=== PATIENT | female | born 1950 | race Caucasian/White ===

== ENCOUNTER 2025-05-10 20:35 | Inpatient (IN) | payer MEDICARE, BC, SELFPAY ==
[2025-05-10 18:26] VITALS: BP 136/119; BMI 35.6
[2025-05-10 18:39] VITALS: BP 75/55
[2025-05-10 18:47] LABS: Hematocrit 42.3 % (37.0-47.0); Hemoglobin 13.1 g/dL (12.0-16.0); Mean Corp Hgb Conc. 31.0 g/dL (33.0-37.0); Mean Corpuscular Volume 82.9 fL (81.0-99.0); Nucleated Red Blood Cells % 0 %; Platelet Count 342 10^3/uL (130-400); Red Cell Dist. Width 14.6 % (11.5-14.5)
[2025-05-10 18:54] LABS: INR 1.01; PT 13.8 Sec (11.4-14.6)
--- NOTE | 2025-05-10 18:58 | ED.GENMED ---
History of Present Illness
General
Chief Complaint: Chest Pain
Source: patient and ambulance crew
History of Present Illness
History of Present Illness:
74-year-old female presents to the emergency room complaining of chest pain. Patient began having chest pain suddenly while eating Thanksgiving dinner. Patient states the pain is severe. Medics were called. Prehospital EKG showed inferior wall
ST elevation consistent with an NJ. A prehospital STEMI alert was called. On arrival to the emergency room the patient began vomiting. She is hypotensive. She answers questions with appropriate but very short answers. Patient was actually
scheduled to have a cardiac catheterization performed tomorrow at [facility]. She has a history of coronary artery disease and has an LAD stent. She has a history of A-fib and is prescribed Eliquis but has not taken it for 2 days in preparation for
her catheterization tomorrow. When asked if the patient is on Plavix or Brilinta as she stated she did not know but medics brought her medication list and neither of these medications is on her medication list. The cardiac catheterization was
scheduled to be performed because the patient has been having significant shortness of breath. No further details were provided given her severe chest pain
Phy Exam
Physical Exam
Physical Exam:
General: Awake, Alert, Oriented to at least person and place. Appears to be in acute distress from chest pain. Pale, diaphoretic
Vitals: Bradycardic, hypotensive
Head: Atraumatic
Eyes: Pupils equal, EOMI
Throat: Airway intact, no exudates
Neck: Trachea midline
Lungs: Decreased breath sounds bilateral
Heart: Bradycardic, regular rate, no murmurs
Abd: Soft, Nontender, No pulsatile mass
Neuro: Grossly nonfocal
Skin: Cool, clammy
Extremities: pulses equal b/l, no edema
Scores
Heart Score for Chest Pain Patients
STEMI patient?: Yes
Course
Orders/Labs/Results
Orders:
Orders
05/10/25 18:29
Ondansetron Injectable [Zofran] 4 mg .ROUTE .STK-MED ONE
05/10/25 18:34
Electrocardiogram (*1) Urgent
Reason for Study: Chest Pain
EKG- Treatment ONCE
IV Insert/Care/Rem.- Treatment PRN
05/10/25 18:35
Complete Blood Count/With Diff Urgent
Comprehensive Metabolic Panel Urgent
Prothrombin Time Urgent
Troponin I Urgent
05/10/25 18:38
Fentanyl Citrate/Pf [Sublimaze] See Dose Instructions .ROUTE .STK-MED ONE
05/10/25 18:45
DOPamine 400 MG/D5W 250 ML [DOPamine] 400 mg in 250 ml .ROUTE .STK-MED
05/10/25 18:50
Heparin 1000 Units/500 ml [Heparin] 1,000 units in 500 ml .ROUTE .STK-MED
Heparin Sodium,Porcine/Ns/Pf [Heparin 2000 Units/1000 ml] 2,000 unit in 1,000 ml .ROUTE .STK-MED
Lidocaine HCl/Pf [Xylocaine-Mpf 1% Vial] 100 mg .ROUTE .STK-MED ONE
Nitroglycerin [Tridil] 1,500 mcg .ROUTE .STK-MED ONE
Verapamil Injectable [Isoptin/Verapamil Injection] 5 mg .ROUTE .STK-MED ONE
05/10/25 18:52
Fentanyl Citrate/Pf [Sublimaze] 100 mcg .ROUTE .STK-MED ONE
Heparin 10,000 units .ROUTE .STK-MED ONE
Midazolam HCl [Versed] See Dose Instructions .ROUTE .STK-MED ONE
05/10/25 18:54
NORepinephrine 4 MG/250 ML [Levophed] 0 mg in 0 ml .ROUTE .STK-MED
05/10/25 19:11
Heparin 5,000 units .ROUTE .STK-MED ONE
Ticagrelor [Brilinta] 180 mg .ROUTE .STK-MED ONE
05/10/25 19:27
Lactic Acid Stat
Comment: STAT
05/10/25 19:28
Eptifibatide [Integrilin] 20 ml .ROUTE .STK-MED
05/10/25 19:32
EPTIFIBATIDE 75 mg/100 mL [Integrilin] 75,000 mcg in 100 ml .ROUTE .STK-MED
05/10/25 20:25
Furosemide [Lasix] 80 mg .ROUTE .STK-MED ONE
05/10/25 20:29
Admit Patient As Directed
Co-Sign Provider:
Level of Care: Inpatient admission
Assign to:: CVICU
Physician / Group: Rogelio/FLORIN
Diagnosis: Inferior STEMI, cardiogenic shock.
Patient Condition: Critical
Reason for Hospitalization: Inferior STEMI, cardiogenic shock.
Expected length of stay greater than two midnights?: Yes
ELOS- Estimated Length of Stay in days: 5
I certify the patient meets the requirements for IP care: Yes
Reason for Overnight Stay: Standard of Care
Electrocardiogram (*1) Urgent
Reason for Study: Other
Other Reason for Exam: s/p intervention
Code Status As Directed
Resuscitation Status: Full Code
CARDIAC REHAB CONSULT Routine
Co-Sign Provider:
Cardiac Rehab & Exercise Evaluation Referral
Type of Cardiac Rehab Referral: Outpatient
Diagnosis: STEMI
Date of Diagnosis/Surgery: 05/10/2025
Referring Provider: Juan Mercado
[facility] Intensive Cardiac Rehab Exercise Prescription
The above named person is capable of participating in an intensive cardiac rehab exercise therapy program
under the guidance of the [facility] cardiac rehab staff, outpatient registered dieticians and
supervision of a physician.
ICR Program Objectives:
Provide supervised exercise, cooking classes, nutritional counseling and healthy mind-set education to
improve the function/symptom free work capacity to an optimal level as well as control risk factors to
prevent the progression of heart disease. During the supervised exercise therapy session some or all of
the following may be included in the cardiac rehab session: ECG telemetry, BP, heart rate, rate of
perceived exertion, symptoms/tolerance, cholesterol testing and education. Exercise modalities may
include: treadmill, upright or recumbent bike, spin bike, rowing machine, elliptical, recumbent
elliptical, arm-bike machine, recumbent stepper and free weights.
Intensity:
All CR staff will use ACSM guidelines: Most patients will exercise in the following range: Heart Rate
[place] range of 40% to 80% & Oxygen Uptake reserve range 40-80% (VO2R). Peak heart rate and VO2 are
derived from the cardiac rehab submaximal graded exercise test at RPE of 13/14 out of 20. Initial
intensity range: RPE 11 to 14/20 and may expand to 11 to 16/20.
Duration & Frequency:
If appropriate the patient will be progressed up to 40 minutes of exercise therapy. Patients will be
instructed to come three times a week in cardiac rehab and at a home/other gym to achieve optimal
physical activity/exercies i.e. 4000-10,000 steps per day.
Education:
The patient will receive one-on-one education during their orientation, initial exercise evaluation, ITP
reassessments and discharge session. Each exercise session will also include an education class (30-40
minutes).
Acetaminophen [Tylenol] 650 mg PO Q4HPRN PRN
Fentanyl Citrate/Pf [Sublimaze] 25 mcg IV [id number] PRN
Midazolam HCl [Versed] 1 mg IV Q5MPRN PRN
Morphine Sulfate 2 mg IV Q1HPRN PRN
Nitroglycerin Sublingual [Nitrostat (Sublingual)] 0.4 mg SL [id number] PRN
Oxycodone/Acetaminophen [Percocet 5/325] 1 tablet PO Q4HPRN PRN
Activity As Directed
Activity Level: Bedrest
Comment: refer to hemostasis device used for bedrest duration, then ambulate ad raquel
Environmental Department Manager Procedure As Directed
Cardiac Cath Procedure: percutaneous coronary intervention
Head of Bed-Restrictions As Directed
Comment: may elevate head of bed 30 degrees
Intake/ Output As Directed
Frequency: Per unit guidelines
Notify MD As Directed
Notify physician if: immediately for chest pain or bleeding from access site(s)
Pressure Bag and Transducer As Directed
Site Checks As Directed
Check access site for bleeding/hematoma: Yes
Comment: on arrival, Q15min x4, Q30min x2, Q1 hr x2, Q2 hr x2, Q4 hr or per
protocol
Vascular Checks As Directed
Location: distal to access site - pulse check
Frequency: Other
Comment: on arrival, Q15min x4, Q30min x2, Q1 hr x2, Q2 hr x2, Q4 hr or per protocol
Venous Foot Pumps As Directed
Location: Bilateral feet
Vital Signs As Directed
Frequency: Other
Additional Instructions:: on arrival, Q15min x4, Q30min x2, Q1 hr x2, Q2 hr x2, then Q4 hr or per unit
protocol
PRN Pain Medication Management As Directed
May give lesser potent ordered pain med per pt: Yes
preference::
Protocol:: Medication orders for pain may be administered in a
manner that supports deferring to patient preference
when the pt is:
- Requesting an ordered lesser potent pain medication.
Least to most potent pain medications are defined
as: acetaminophen < NSAID < tramadol < opioids
(morphine, oxycodone, hydromorphone).
- Requesting a lesser dose of the same medication IF
ORDERED.
- Requesting a less intrusive route of administration
if both routes are prescribed by the provider (PO <
IV).
05/10/25 20:30
EPTIFIBATIDE 75 mg/100 mL [Integrilin] 75,000 mcg in 100 ml IV ORDERED RATE
DX Deep Vein Thrombosis Video Routine
05/10/25 20:31
Venous Sheath As Directed
Comment: ACT on arrival, then q1hr until < 170, then remove sheath per guidelines
05/10/25 21:00
0.9% Sodium Chloride 500 ml [Nss] 500 ml RESHMA SHEATH 30 mls/hr
05/10/25 21:17
Glycohemoglobin (HgbA1c) Routine
Troponin I Q6H
05/11/25 02:30
Troponin I Q6H
05/11/25 06:00
Echo 2D MMode Color/Doppler IN AM
Reason for Study: Inferior STEMI, cardiogenic shock.
Electrocardiogram (*1) IN AM
Reason for Study: Other
Other Reason for Exam: s/p intervention
Cholesterol Lowering
At Your Request: Full Participation
Cholesterol Lowering: Sodium, 2 Gram
Basic Metabolic Panel IN AM
Complete Blood Count/No Diff IN AM
05/11/25 08:30
Troponin I Q6H
05/11/25 14:30
Troponin I Q6H
05/11/25 18:00
Atorvastatin [Lipitor] 40 mg PO QPM
05/11/25 19:00
Clopidogrel Bisulfate [Plavix] 600 mg PO ONCE ONE
05/11/25 20:30
Troponin I Q6H
05/12/25 06:00
Basic Metabolic Panel IN AM
Complete Blood Count/No Diff IN AM
05/12/25 08:00
Clopidogrel Bisulfate [Plavix] 75 mg PO DAILY
05/13/25 06:00
Basic Metabolic Panel IN AM
Complete Blood Count/No Diff IN AM
05/14/25 06:00
Basic Metabolic Panel IN AM
Complete Blood Count/No Diff IN AM
05/15/25 06:00
Basic Metabolic Panel IN AM
Complete Blood Count/No Diff IN AM
Abnormal Lab Results
05/10/25 05/10/25 05/10/25
18:35 19:26 19:27
WBC 13.6 H 10^3/uL
(4.8-10.8)
MCH 25.7 L pg
(27.0-31.0)
MCHC 31.0 L g/dL
(33.0-37.0)
RDW 14.6 H %
(11.5-14.5)
Abs Immat Gran (auto) 0.1 H 10^3/uL
(0-0.05)
Absolute Neuts (auto) 10.2 H 10^3/uL
(1.4-6.5)
Absolute Monos (auto) 0.8 H 10^3/uL
(0.1-0.6)
Immature Gran % 0.6 H %
(0-0.5)
Lymphocytes % 15.5 L %
(20.5-51.1)
Potassium 5.3 H mmol/L
(3.5-5.1)
Carbon Dioxide 21 L mmol/L
(22-30)
BUN 27 H mg/dl
(7-17)
Creatinine 1.1 H mg/dL
(0.6-1.0)
Glucose 290 H mg/dl
(70-99)
Lactic Acid 3.0 H mmol/L
(0.7-2.0)
POC ACT Low Range 337 H Seconds
(116-155)
05/10/25
19:54
WBC
MCH
MCHC
RDW
Abs Immat Gran (auto)
Absolute Neuts (auto)
Absolute Monos (auto)
Immature Gran %
Lymphocytes %
Potassium
Carbon Dioxide
BUN
Creatinine
Glucose
Lactic Acid
POC ACT Low Range 300 H Seconds
(116-155)
05/10/25 18:35
05/10/25 18:35
Vital Signs
Initial and Last Documented VS:
Initial Vital Signs
Pulse Resp BP
54 15 136/119
05/10/25 18:26 05/10/25 18:26 05/10/25 18:26
Last Documented Vital Signs
Temp Pulse Resp BP Pulse Ox
98.9 F 72 25 75/55 99
05/10/25 22:00 05/10/25 22:50 05/10/25 23:00 05/10/25 18:39 05/10/25 23:00
MDM/Problems Addressed
Differential Diagnosis Includes:
STEMI, NSTEMI, coronary artery dissection
MDM/Problems Addressed:
74-year-old female presents in acute distress from an inferior wall NJ. She has ST elevation in leads II, III and aVF with reciprocal changes. Prehospital STEMI alert was called based upon the prehospital EKG that was transmitted to us. Medics
had difficulty obtaining IV access. Nursing was able to obtain IV access using ultrasound-guided technique here. 2 18-gauge IVs were placed. We immediately started IV fluid bolus once IV access was obtained. Initial blood pressure was acceptable
but repeat blood pressure showed a systolic in the 70s prompting us to start Levophed. Dr. Pedraza arrived and because the patient was persistently hypotensive he has we increased the Levophed to 10. He personally a very brief bedside echo which
showed stunned RV. He has we also start dopamine at 10. Given the patient has held her Eliquis for 2 days she did receive the 5000 unit bolus of heparin. Because there is no mention of Brilinta or Plavix on her medication list she was given 180
of Brilinta orally. Patient left the emergency room to go to the Environmental Department Manager hypotensive but awake and answering questions fluids and pressors were infusing.
Chronic conditions affecting care: CAD
Acute Exacerbation and/or Progression of Chronic Illness: CAD
*Pulse Oximetry
SaO2: 90
Oxygen Mode of Delivery: Room air
Patient hypoxic: yes
*EKG
Interpretation: abnormal
Rate: bradycardiac
Rhythm: sinus
Ischemia: ST elevation (2 3 and aVF)
*[employer] Interpretation
Rate: bradycardiac
Interpretation: abnormal
Rhythm: sinus
*Critical Care Note
Total Time (30-74mins, 75-104mins- exclusive of procedures): 35 minutes
comment:
Critical care statement: A total of 35 minutes of critical care time was provided for this patient. This includes management of unstable vital signs, evaluation of the patient at bedside, reviewing the patient's pertinent medical records, discussion
with consultants, review of old EKGs and review of pertinent medical records. This time with separate from time utilized to perform the aforementioned documented procedures
ED Attending Note
-
Portions of this chart may have been created with voice recognition software.� Occasional wrong word or��sound alike� substitutions may have occurred due to the inherent limitations of voice recognition software.
Discharge Plan
Departure
Patient Disposition: Admit
Date of Disposition: 05/10/25
Time of Disposition: 19:05
Admit to: director of labor relations
Presentation/result/management discussed w/ accepting MD/DO: Dr. Pedraza
Condition: Critical
Discharge Problem:
Acute [place], inferior wall
Interventions
Interventions:
*Risk Screen - Suicide Last Done: 05/10/25 21:55
*General Assessment Last Done: 05/10/25 18:26
*Neglect/Abuse Screening Last Done: 05/10/25 18:26
*ED COVID-19 Vaccine History Last Done: 05/10/25 21:55
*Nursing Disposition Last Done: 05/10/25 19:14
ED- Cardiac Assessment Last Done: 05/10/25 18:37
Discharge Date and Time
Discharge Date/Time: 05/10/25 19:15
--- NOTE | 2025-05-10 19:01 | HPS.HSE ---
Family Physician
-
Family Physician: INTERVIEWE UNKNOWN - PT NOT
Chief Complaint
-
Chest pain.
History of Present Illness
74-year-old female with past medical history of paroxysmal atrial fibrillation on apixaban (held in preparation for upcoming cardiac catheterization), obesity, hypertension, hyperlipidemia, diabetes and CAD with prior PCI (reportedly to the LAD)
presenting with chest pain. The patient was eating dinner when she developed central chest discomfort. EMS was called and the patient was transported to [facility] emergency room. In the emergency room, the patient was found to be
bradycardic and hypotensive. She is responsive and answering questions, though appears lethargic and is clammy and diaphoretic to touch. She was given ticagrelor, heparin and a dose of fentanyl for pain relief. She reports prior PCI was at
[facility] prior to total knee surgery. She underwent repeat cardiac catheterization in June 2020 after an abnormal stress test prompted by another knee replacement surgery. This showed occlusion of the mid LAD stents with faint left to left
collaterals. She was asymptomatic at that time. More recently, she reports significant dyspnea on exertion and was scheduled for repeat cardiac catheterization at [facility] tomorrow.
Medical History
Past Medical History
Past Medical History: Reports Arrhythmia (PAF), CAD (mLAD PCI with [employer] ISR (06/18/2020).), HTN, Hypercholesterolemia and NIDDM
Past Surgical History: Reports Orthopedic (Bilateral TKA)
Social History
Unable to obtain full social history at this time due to: Acuity
Tobacco: Former Smoker
Family History
Family History: Not pertinent
Allergies / Home Medications
Allergies reflects when Allergies were last updated in [facility].
Home Medications with original date entered in [facility]
Allergy/Medication List:
Not obtained due to patient lethargy and acuity of situation.
Review of Systems
-
Unable to obtain full review of systems at this time due to: Acuity
History Source: Patient, Ambulance Crew and Physician
Constitutional: Reports See HPI
Respiratory: Reports Trouble Breathing
Cardiac: Reports Chest Pain and Diaphoresis
Physical Exam
Vital Signs
Vital Signs
Pulse Resp BP
54 15 75/55
05/10/25 18:26 05/10/25 18:26 05/10/25 18:39
Physical Exam
General: Well Developed, Well Nourished, Appears in Distress, Pain, Sweats and Morbidly Obese
HEENT: NormoCephalic, Anicteric, Moist mucous membranes and Atraumatic
Respiratory: Accessory Resp Muscle Use and Decreased Breath Sounds
Cardiac: S1/S2 and Regular Rhythm (Severe bradycardia (38 bpm).)
Breast: Deferred by me
GI: Soft, Non Tender, Non Distended and Normal Bowel Sounds
Rectal: Deferred by Provider
Genito-urinary: Deferred by me
Musculoskeletal: No Clubbing, No Cyanosis and No Edema
Skin: Other (Cool, clammy.)
Neuro: Other (Lethargic.)
Laboratory Results
-
05/10/25 18:35
Data Reviewed
-
Old Records: Reviewed
Impression/Plan
-
Impression/Plan: 74 y/o female with PAF on apixaban, HTN, HLD, DM2, obesity and CAD with prior PCI of the mLAD with known, asymptomatic ISR occlusion on follow up cardiac catheterization, now presenting with inferior STEMI complicated by
bradycardia and hypotension requiring pressors, hypoxia and lethargy, consistent with cardiogenic shock.
#Inferior STEMI
-Acute, threat to life. The patient is critically ill.
-Patient received ticagrelor, aspirin and heparin in ER.
-Patient is critically ill.
-Consent signed and on the chart.
-Emergent cardiac catheterization to clarify coronary anatomy and revascularization.
#Cardiogenic shock
-Acute, threat to life, secondary to inferior STEMI with prior mLAD ISR [employer].
-Norepinephrine started in the ER, increased to 10 mcg/kg/min.
-Start dopamine 10 mcg/kg/min to assist with bradycardia and hypotension.
-Based on response, we will consider placement of a PA catheter, possible MCS if needed. Discussed with Dr. Worthington.
#PAF
-Chronic.
-Currently in extreme sinus alysha vs junctional escape.
-Hold any/all rate control at this time.
-CHADS2-Vasc = 5 (HTN, Age x1, DM, vascular disease, female).
-Ultimately resume apixaban, but we need to deal with STEMI/Shock first.
#HLD
#DM2
#Obesity
[2025-05-10 19:11] LABS: ALT (SGPT) 18 U/L (0-35); AST (SGOT) 27 U/L (14-36); Albumin 4.4 g/dl (3.5-5.0); Alkaline Phosphatase 97 U/L (38-126); Blood Urea Nitrogen 27 mg/dl (7-17); Calcium 9.7 mg/dl (8.4-10.2); Carbon Dioxide 21 mmol/L (22-30); Chloride 104 mmol/L (98-107); Estimated Creatinine Clearance 51 ml/min; Glucose 290 mg/dl (70-99); Potassium 5.3 mmol/L (3.5-5.1); Sodium 137 mmol/L (135-145); Total Protein 7.4 g/dl (6.3-8.2); eGFR 53.06
[2025-05-10 19:23] LABS: Troponin I 0.019 ng/ml
[2025-05-10 19:49] LABS: ACT-LR - POC 337 Seconds (116-155)
[2025-05-10 20:11] LABS: ACT-LR - POC 300 Seconds (116-155)
--- NOTE | 2025-05-10 20:34 | ITS.CL.ANGIO ---
Security Incident [facility] - Angioplasty
Angioplasty
Procedure Report:
CARDIAC CATHETERIZATION REPORT
Date of Procedure: 05/10/2025
Referring: Cortez Saeed D.O.
INDICATION: Inferior ST elevation myocardial infarction, cardiogenic shock.
PROCEDURE:
1. Left heart catheterization.
2. Coronary angiography.
3. Aspiration thrombectomy.
4. Successful PCI of the proximal RCA.
A total of 52 minutes of procedural/moderate sedation was utilized as the patient received sedation in the emergency room. An independent medical case manager was present to assist with and help manage the patient's level of consciousness and
physiologic status.
ACCESS:
1. 6 Estonian right common femoral artery using a modified Seldinger technique with a micropuncture kit under ultrasound guidance.
2. A 6 Estonian right common femoral vein using a modified Seldinger technique with a micropuncture kit under ultrasound guidance.
CATHETERS:
1. 5 Estonian angled pigtail.
2. 5 Estonian JR4.
3. 5 Estonian JL 4.
4. 6 Estonian JR4 guiding catheter.
HEMODYNAMIC DATA
Weight (kg): 94.0
AO (s/d/x, mmHg): 160/80/113
LV (s/x mmHg): 161/35
AV gradient (x, mmHg): None.
LEFT VENTRICULOGRAPHY: Performed in an [place] CRUZ projection. At least mildly dilated left ventricle with akinesis of the basal and mid inferior wall with hypokinesis of the anterior and lateral wall including the apex. Left ventricular ejection
fraction estimated at 45-50%. There is no mitral valve regurgitation. There is no aortic valve insufficiency. The aortic root, ascending aorta and descending thoracic aorta appear normal.
CORONARY ANGIOGRAPHY
Dominance: Right.
Left Main: Normal size, bifurcating vessel. There is no coronary artery disease.
LAD: Normal size giving rise to 2 diagonals that originate from a common origin of the proximal vessel. A patent stent is present in the mid vessel. There is a 50% lesion right at the origin of the diagonals. There is a more severe,
likely 70% lesion in the proximal margin of the stent. There is a long, 60-70% ISR lesion of the stented segment.
Ramus: Congenitally absent.
Circumflex: Normal size, nondominant vessel giving rise to 1 obtuse marginal which subsequently bifurcates into 2 daughter branches. There are minor luminal irregularities.
RCA: Large size, dominant vessel with a large posterolateral branch. The vessel is acutely, thrombotically occluded in its proximal margin with DAVID 0 flow.
INTERVENTION(S)
1. Unsuccessful successful aspiration thrombectomy in the proximal RCA, with removal of some clot but no improvement in RCA flow.
2. Successful PCI of the acute, thrombotic 100% proximal RCA lesion (Xience Skypoint 3.0 x 23 JAZMIN, postdilated with a 3.5 NC balloon) with reduction in stenosis to 0%, restoring DAVID-3 flow in the RCA and RPDA.
3. Successful aspiration thrombectomy of the mid RPL embolized clot with large clot burden removed and taoism of DAVID-3 flow throughout the remainder of the RCA.
Narrative:
The patient was brought emergently to the [facility]. With initiation of dopamine in the emergency room, her bradycardia had resolved and she was now in a sinus tachycardia. Her blood pressure was drastically improved. Access was obtained in the
right common femoral artery as well as in the right common femoral vein to assist with infusion of vasoactive medications. Initially, we plan to place a pacemaker, but this was clearly no longer needed.
After diagnostic angiography, the decision was made to proceed with percutaneous coronary intervention. The diagnostic catheter was removed over a wire and a 6Fr JR4 guiding catheter was advanced to the aortic root and seated in the right coronary
artery. Additional heparin was given and a Power Turn Flex wire was advanced into the distal RCA.
The decision was made to perform aspiration thrombectomy. An JOSE LUIS catheter was prepped and flushed on the back table then connected to a syringe which was pulled to negative. The catheter was advanced into the proximal RCA. The stopcock was
opened to the vacuum syringe and the catheter was passed through the thrombotic segment. The catheter was withdrawn from the guiding catheter, maintaining negative pressure. The contents were emptied into the filter basket. Small pieces of
organized thrombus were found in the basket. Repeat angiography was performed which demonstrated persistent thrombus in the proximal RCA and no improvement in the flow through the vessel.
The acute, thrombotic 100% proximal RCA lesion was predilated with a 2.0 x 12 semi-compliant balloon to 12 catie. This restored DAVID-3 flow in the proximal and mid RCA down to the level of the RPDA. Embolized clot was plainly visible at the junction
of the RPDA and RPL branches. The semi-compliant balloon was removed and the JOSE LUIS catheter was readvanced into the distal RCA. Aspiration was performed for a second time. Once again, pieces of clot were found in the filter basket, though no large
single thrombus was observed. Repeat angiography now demonstrated DAVID-3 flow through the RCA and entire RPDA. The clot had subsequently embolized into the midportion of the right posterolateral branch.
The decision was made to stabilize the proximal RCA plaque. A Xience Skypoint 3.0 x 23 drug-eluting stent was advanced into the proximal RCA. The stent was deployed at 12 atmospheres. The stent balloon was removed. A 3.5 x 15 noncompliant balloon
was advanced though had difficulty advancing into the stented segment. A 6 Estonian GuideLiner was advanced into the RCA over the 2.0 x 12 semicompliant balloon using a sheathing technique. With the GuideLiner in place, the 3.5 x 15 NC balloon was
advanced into the stent and the stent was postdilated to 15 atmospheres.
The noncompliant balloon was withdrawn and we directed our attention back to the embolized stent in the RPL branch. Review of previous angiography revealed that the RPL branch is a substantial vessel. The pouch and flex wire was redirected from
the RPDA and into the distal RPL. The JOSE LUIS catheter was advanced into the RPL and aspiration thrombectomy was performed for a third time. The JOSE LUIS catheter once again appeared torqued and was withdrawn on continuous suction. This time, a large
dark thrombus was observed on aspiration. Angiography was repeated and demonstrated taoism of DAVID-3 flow in the RPL branch with no residual thrombus.
Angiography was performed in orthogonal views, confirming good stent expansion and an excellent angiographic result throughout the entire vessel. The coronary wire was withdrawn and the guide was disengaged from the artery. The catheter was removed
over a standard J-wire.
Given the need for vasoactive medications and continuous blood pressure monitoring, the right common femoral arterial and venous sheaths were sutured in place. A Christy catheter was placed and the patient was given furosemide 80 mg IV for her
severely elevated filling pressures. The patient was transferred to the CVICU in critical condition.
Closure Device: None. The right common femoral arterial and venous sheaths were sutured in place to allow for blood pressure management and infusion of vasoactive medications.
Radiation (mGy): 855
DAP (cm2.Gy): 45.8
Fluoroscopy time (minutes): 10.7
CONCLUSIONS
1. Right dominant circulation with a 50% lesion in the proximal LAD at the origin of the diagonals a 70% lesion in the proximal margin of the mid LAD stent followed by a long 60-70% ISR lesion of the entire stented segment and a acute, thrombotic,
100% proximal RCA lesion status post aspiration thrombectomy of the proximal RCA, successful PCI of the proximal RCA (Xience Skypoint 3.0 x 23 JAZMIN, postdilated with a 3.5 NC balloon) with reduction in proximal stenosis to 0% and restoring DAVID-3
flow in the RCA and RPDA but resulting in embolization of the clot into the large RPL with subsequent repeat aspiration thrombectomy and removal of large clot burden from the RPL, restoring DAVID-3 flow throughout the entire vessel.
2. At least mildly dilated left ventricle with akinesis of the basal to mid inferior wall and mildly impaired systolic function, LVEF = 45-50%.
3. Severely elevated filling pressures (LVEDP = 35 mmHg at 94.0 kg).
4. Cardiogenic shock (hypotension requiring pressors, lethargy, diaphoresis), recovering with improved inotropic and chronotropic.
RECOMMENDATIONS:
1. Expectant management after cardiac catheterization via right common femoral approach.
2. Limited weight bearing for one week.
3. Antiplatelet therapy with clopidogrel in addition to therapeutic anticoagulation. Discontinue ticagrelor.
4. Continue eptifibatide drip for at least 18 hours given large thrombus burden.
5. Medication reconciliation. We will start OMT/GDMT as hemodynamics will tolerate and as coincides with her home medications.
6. Titrate/wean pressors for MAP >65.
7. Furosemide 80 mg IV given at the end of the case with Christy catheter placement.
8. Echocardiogram ordered and pending.
9. Likely relook cardiac catheterization to evaluate percutaneous intervention on the mid LAD de margarito and ISR lesions for complete revascularization.
10. Referral to cardiac rehab.
Copy to: Richie Adorno M.D., Shreya Bailey M.D.
Juan Mercado DO, FACC, FACP
[2025-05-10] MEDS: REGLAN 10 MG IV (21:38)
[2025-05-10] MEDS: NSS 500 VEN SHEATH (22:00)
--- NOTE | 2025-05-10 22:00 | PTCARENOTE ---
recieved pt from r and d lab technician post stemi @ 0. recieved pt lying flat in bed -
Neuro - Aox3. no c/o pain.
CV - NSR on tele 80s-90s. BP elevated to 180s-190s on arrival, recieved with levo at 10. quickly titrated levo off. Dopa quickly titrated off as well. + R DP pulse, + L PT pulse. heart tones distant.
Lungs - Clear, diminished on 2L satting 99 percent.
GI - +BS, tolerating sips of water
- Christy present draining clear yellow urine.
Skin- Intact, no wounds noted
Lines - R and L PIV intact, R femoral venous and arterial sheaths present. R leg with good color, warmth, cap refill, and pulse. Sheaths to remain overnight per CTPA tsilina.
Meds - Dopa at 10, levo at 10 on arrival, quickly titrated off.
full admission completed, pt bathed with CHG, call la within reach. family at bedside. pt now resting comfortably
[2025-05-10 22:05] LABS: Troponin I 33.400 ng/ml
[2025-05-10 22:52] LABS: Blood Urea Nitrogen 31 mg/dl (7-17); Calcium 8.3 mg/dl (8.4-10.2); Carbon Dioxide 23 mmol/L (22-30); Chloride 105 mmol/L (98-107); Estimated Creatinine Clearance 56 ml/min; Glucose 361 mg/dl (70-99); Magnesium 1.7 mg/dl (1.6-2.3); Potassium 4.5 mmol/L (3.5-5.1); Sodium 133 mmol/L (135-145); eGFR 59.49
[2025-05-10 23:18] LABS: Glucose - Point of Care 401 mg/dl (70-99)
[2025-05-11] VITALS (26 sets, daily range): BP systolic 70–129; BP diastolic 43–107; BMI 35.4
[2025-05-11 00:02] LABS: Glucose 362 mg/dl (70-99)
[2025-05-11] MEDS: MAGNESIUM SULFATE 50 IV (00:08)
[2025-05-11] MEDS: INTEGRILIN 100 IV ×2 (00:41→07:09)
[2025-05-11] MEDS: NOVOLOG FLEXPEN 5 UNITS SC (00:44)
[2025-05-11 03:15] LABS: Glucose - Point of Care 268 mg/dl (70-99)
[2025-05-11 03:57] LABS: Blood Urea Nitrogen 29 mg/dl (7-17); Calcium 8.7 mg/dl (8.4-10.2); Carbon Dioxide 25 mmol/L (22-30); Chloride 103 mmol/L (98-107); Estimated Creatinine Clearance 62 ml/min; Glucose 240 mg/dl (70-99); Potassium 4.4 mmol/L (3.5-5.1); Sodium 134 mmol/L (135-145); eGFR > 60.00
--- NOTE | 2025-05-11 04:00 | PTCARENOTE ---
labs drawn and sent . pt resting with call la within reach , VSS. no change in assessment .
[2025-05-11 04:33] LABS: Troponin I 52.900 ng/ml
[2025-05-11] MEDS: PERCOCET 5/325 1 TABLET PO ×2 (05:43→12:09)
[2025-05-11 05:46] LABS: Hematocrit 31.5 % (37.0-47.0); Hemoglobin 10.2 g/dL (12.0-16.0); Mean Corp Hgb Conc. 32.4 g/dL (33.0-37.0); Mean Corpuscular Volume 79.7 fL (81.0-99.0); Platelet Count 270 10^3/uL (130-400); Red Cell Dist. Width 14.3 % (11.5-14.5)
--- NOTE | 2025-05-11 06:00 | PTCARENOTE ---
pt went into afib 120s-140s. asymptomatic, BP stable. lopressor 2.5 ordered and given.
[2025-05-11] MEDS: LOPRESSOR 2.5 MG IV ×2 (06:02→07:10)
[2025-05-11 06:26] LABS: Magnesium 2.5 mg/dl (1.6-2.3)
[2025-05-11 08:51] LABS: Glycohemoglobin (HgbA1c) 6.9 % (4.0-5.9)
[2025-05-11] MEDS: NSS VEN SHEATH (09:18)
[2025-05-11] MEDS: MORPHINE SULFATE 2 MG IV (09:21)
[2025-05-11 09:57] LABS: ACT-LR - POC 118 Seconds (116-155)
[2025-05-11 10:28] LABS: Glucose - Point of Care 166 mg/dl (70-99)
[2025-05-11] MEDS: NOVOLOG FLEXPEN-LOW RESISTANCE 1 UNITS SC (10:29)
--- NOTE | 2025-05-11 12:29 | PTCARENOTE ---
0945 NSR HR 70s. AV Sheaths pulled by film laboratory technician RN. Mary Lou castro c/d/i. will continue to monitor.
[2025-05-11 13:26] LABS: Troponin I 42.100 ng/ml
[2025-05-11 14:40] LABS: Glucose - Point of Care 141 mg/dl (70-99)
--- NOTE | 2025-05-11 14:46 | CM ---
spoke to pt and husb in room, she is prev indep, lives with her husb in a 2 story home with no steps to enter. she denies any dme's or dc olanning needs. plan is for dc to home when medically stable.
[2025-05-11] MEDS: REGLAN 10 MG IV (15:02)
[2025-05-11] MEDS: NOVOLOG FLEXPEN-LOW RESISTANCE SC (15:05)
--- NOTE | 2025-05-11 15:58 | PTCARENOTE ---
0945 back in SR. AFIB 1500. HR 115
[2025-05-11] MEDS: LIPITOR 40 MG PO (17:28)
[2025-05-11] MEDS: PLAVIX 600 MG PO (17:29)
--- NOTE | 2025-05-11 17:57 | PTCARENOTE ---
some vaginal bleeding noted. MD notified. will recheck labs in am. okay to give Plavix dose now per . Remains in AFIB. for Heart cath Mon. will continue ot monitor.
--- NOTE | 2025-05-11 18:38 | W.PN.CD ---
Today's Communication / Plan
-
Continue DAPT
Repeat LHC on Wednesday
Impression / Plan
-
74 y/o female with PAF on apixaban, HTN, HLD, DM2, obesity and CAD with prior PCI of the mLAD with known, asymptomatic ISR occlusion on follow up cardiac catheterization, now presenting with inferior STEMI complicated by bradycardia and hypotension
requiring pressors, hypoxia and lethargy, consistent with cardiogenic shock. Now s/p PCI to RCA.
#Inferior STEMI
-She was initially in cardiogenic shock requiring norepinephrine and dopamine. Both have been weaned off.
-LHC 05/10/2025: Patent mid LAD stent, 50% lesion at the origin of the diagonals, 70% lesion in the proximal margin of distal LAD stent, 60-70% ISR of the stented segment, acute thrombotic occlusion of proximal RCA, s/p thrombectomy and JAZMIN in
proximal RCA; LVEDP 35 mmHg
-S/p Integrilin
-Continue aspirin, clopidogrel, and statin. Beta-anushka on hold due to hypotension.
-Plan is for repeat LHC on Wednesday to interrogate ISR of LAD stent
#PAF
-Chronic. Rate controlled and asymptomatic.
-CHADS2-Vasc = 5 (HTN, Age x1, DM, vascular disease, female).
-Ultimately resume apixaban, but she is having bleeding on DAPT, so we will hold off until after repeat LHC on Wednesday
#Vaginal bleeding
-Continue DAPT given fresh stent and extensive thrombus burden
-Will ultimately need vaginal ultrasound outpatient
#HLD
#DM2
#Obesity
Subjective: She denies chest pain or shortness of breath. Cath sites feel okay. She is having blood in her Christy and vaginal bleeding.
Telemetry: Paroxysmal atrial fibrillation
Physical Exam
Vital Signs/Labs
Vital Signs
Temp Pulse Resp BP Pulse Ox
98.8 F 111 18 100/64 93
05/11/25 15:57 05/11/25 17:35 05/11/25 15:57 05/11/25 17:00 05/11/25 15:57
05/10/25 05/11/25 05/12/25
06:59 06:59 06:59
Actual Weight 206 lb 5.643 oz
05/11/25 03:10
05/11/25 03:10
PT 13.8 Sec (11.4-14.6) 05/10/25 18:35
INR 1.01 05/10/25 18:35
Magnesium 2.5 mg/dl (1.6-2.3) H 05/11/25 03:10
LAB Results
05/10/25 05/10/25 05/11/25
18:35 21:17 03:10
Troponin I 0.019 33.400 H* D 52.900 H* D
05/11/25 05/11/25
08:30 12:50
Troponin I Cancelled 42.100 H*
Physical Exam
Constitutional: No acute distress and Comfortable
Cardiovascular: Rhythm & rate is regular, Pedal edema is absent, S1S2 is normal and Murmur/rub/gallop absent
Respiratory: Respiratory effort normal and Lungs clear to auscul.
Neuro/Psych: AO x 3
Other: Cath Site (soft, no swelling or erythema)
Data Reviewed
-
Date of Service: May 11, 2025
Medical Decision Making: Reviewed Test Results, Test Interpretation and Review of Case with other Provider
EKG: Tracing Personally Visualized and interpreted
Echo: Tracing Personally Visualized and interpreted and Report Reviewed by me
Labs: Labs Reviewed by me
[2025-05-11 19:09] LABS: Glucose - Point of Care 220 mg/dl (70-99)
[2025-05-11] MEDS: NOVOLOG FLEXPEN-LOW RESISTANCE 2 UNITS SC (19:10)
--- NOTE | 2025-05-11 20:00 | PTCARENOTE ---
received pt from previous rn. ptAAOx4, no c/o pain at this time. ambulating in room. A-fib per tele monitor HR 100s. +pulses Doppler L pedal pulse. trace edema noted. pox 96% on RA. Dyspneic on exertion. lungs clear and diminished throughout. +bs.
pt voiding spontaneously in bathroom. slight hematuria, CTPA made aware. R groin c/d/i. PIV x2 intact. plan of care discussed and questions encouraged. call la within reach.
[2025-05-11 22:43] LABS: Glucose - Point of Care 217 mg/dl (70-99)
--- NOTE | 2025-05-12 00:27 | PTCARENOTE ---
pt reassessed. pt resting comfortably in bed. VSS. hematuria has subsided. a-fib per tele monitor HR 100s.
[2025-05-12 03:25] VITALS: BP 106/74
--- NOTE | 2025-05-12 04:00 | PTCARENOTE ---
pt reassessed. VSS. A-fib per tele monitor. pox 100% on 2L NC. AM labs sent.
[2025-05-12 04:11] LABS: Hematocrit 31.5 % (37.0-47.0); Hemoglobin 10.2 g/dL (12.0-16.0); Mean Corp Hgb Conc. 32.4 g/dL (33.0-37.0); Mean Corpuscular Volume 79.7 fL (81.0-99.0); Platelet Count 230 10^3/uL (130-400); Red Cell Dist. Width 14.5 % (11.5-14.5)
[2025-05-12 04:15] LABS: Blood Urea Nitrogen 25 mg/dl (7-17); Calcium 8.5 mg/dl (8.4-10.2); Carbon Dioxide 27 mmol/L (22-30); Chloride 102 mmol/L (98-107); Estimated Creatinine Clearance 79 ml/min; Glucose 158 mg/dl (70-99); HDL Cholesterol 31 mg/dl; LDL Cholesterol, Calculated 48 mg/dl; Potassium 4.4 mmol/L (3.5-5.1); Sodium 133 mmol/L (135-145); Very Low Density Lipoprotein 28 mg/dl (0-30); eGFR > 60.00
[2025-05-12 07:00] VITALS: BMI 34.9
--- NOTE | 2025-05-12 07:43 | PTCARENOTE ---
Vital signs captured via Angela monitor for previous shift.
[2025-05-12 08:00] VITALS: BP 116/77
--- NOTE | 2025-05-12 08:26 | W.PN.CD ---
Today's Communication / Plan
-
dilt and heparin gtt for AF RVR
Monitor Hgb for worsening bleeding
NPO Wednesday for cath Wednesday
Impression / Plan
-
74 y/o female with PAF on apixaban, HTN, HLD, DM2, obesity and CAD with prior PCI of the mLAD with known, asymptomatic ISR occlusion on follow up cardiac catheterization, now presenting with inferior STEMI complicated by bradycardia and hypotension
requiring pressors, hypoxia and lethargy, consistent with cardiogenic shock. Now s/p PCI to RCA.
#Inferior STEMI
-She was initially in cardiogenic shock requiring norepinephrine and dopamine. Both have been weaned off.
-[facility] 05/10/2025: Patent mid LAD stent, 50% lesion at the origin of the diagonals, 70% lesion in the proximal margin of distal LAD stent, 60-70% ISR of the stented segment, acute thrombotic occlusion of proximal RCA, s/p thrombectomy and JAZMIN in
proximal RCA; LVEDP 35 mmHg
-S/p Integrilin
-Continue aspirin, clopidogrel, and statin.
-Plan is for repeat C on Wednesday to interrogate ISR of LAD stent
#PAF now in AF RVR
- start dilt gtt now that BP recovered
- start heparin and monitor Hgb and bleeding
-CHADS2-Vasc = 5 (HTN, Age x1, DM, vascular disease, female).
-Ultimately resume apixaban, monitor hgb for worsening bleeding
#Vaginal bleeding
-Continue DAPT given fresh stent and extensive thrombus burden
-monitor
#HLD
#DM2
#Obesity
Subjective: Feels improved
Physical Exam
Vital Signs/Labs
Vital Signs
Temp Pulse Resp BP Pulse Ox
97.8 F 145 16 116/77 99
05/12/25 08:14 05/12/25 08:10 05/12/25 08:14 05/12/25 08:00 05/12/25 08:14
05/11/25 05/12/25 05/13/25
06:59 06:59 06:59
Actual Weight 206 lb 5.643 oz
05/12/25 03:43
05/12/25 03:43
PT 13.8 Sec (11.4-14.6) 05/10/25 18:35
INR 1.01 05/10/25 18:35
Magnesium 2.5 mg/dl (1.6-2.3) H 05/11/25 03:10
Triglycerides 140 mg/dl (10-149) 05/12/25 03:43
LDL Cholesterol, Calc 48 mg/dl 05/12/25 03:43
VLDL Cholesterol, Calc 28 mg/dl (0-30) 05/12/25 03:43
HDL Cholesterol 31 mg/dl 05/12/25 03:43
LAB Results
05/10/25 05/10/25 05/11/25
18:35 21:17 03:10
Troponin I 0.019 33.400 H* D 52.900 H* D
05/11/25 05/11/25 05/12/25
08:30 12:50 00:30
Troponin I Cancelled 42.100 H* Cancelled
Physical Exam
Constitutional: No acute distress and Comfortable
EENT: Anicteric
Cardiovascular: Rhythm/rate is irregular
Respiratory: Respiratory effort normal and Lungs clear to auscul.
GI: Soft
Neuro/Psych: Alert and Oriented
Data Reviewed
-
Date of Service: May 12, 2025
EKG: Tracing Personally Visualized and interpreted (af)
Echo: Report Reviewed by me
Labs: Labs Reviewed by me
[2025-05-12] MEDS: PLAVIX 75 MG PO (08:46)
[2025-05-12] MEDS: LOW STRENGTH ASPIRIN 81 MG PO (08:46)
[2025-05-12 08:47] LABS: Glucose - Point of Care 175 mg/dl (70-99)
--- NOTE | 2025-05-12 09:00 | PTCARENOTE ---
Patient received from third shift lieutenant resting in bed, AAO X 3, denies pain. Afib via cm rates 110's to 120's - physician notified. Sao2 @ 95% on RA. R groin procedural site cdi, distal pulse palp. Assisted oob to bathroom, voided. Settled to chair.
Patient updated to plan of care for the day, in agreement. See work list for full assessment and interventions performed.
[2025-05-12] MEDS: NOVOLOG FLEXPEN-LOW RESISTANCE 1 UNITS SC ×2 (09:21→13:12)
[2025-05-12 12:02] VITALS: BP 108/78
[2025-05-12] MEDS: CARDIZEM 10 MG IV (12:04)
[2025-05-12] MEDS: CARDIZEM 125 IV ×2 (12:05→21:39)
[2025-05-12 12:11] LABS: Hematocrit 32.5 % (37.0-47.0); Hemoglobin 10.6 g/dL (12.0-16.0); Mean Corp Hgb Conc. 32.6 g/dL (33.0-37.0); Mean Corpuscular Volume 79.9 fL (81.0-99.0); Platelet Count 213 10^3/uL (130-400); Red Cell Dist. Width 14.5 % (11.5-14.5)
--- NOTE | 2025-05-12 12:15 | PTCARENOTE ---
VS obtained, stable. Dr. Narayan updated to status, on unit, orders given. Family at bedside, patient resting comfortably.
[2025-05-12 12:18] LABS: APTT 27.7 Sec (23.4-35.0)
[2025-05-12] MEDS: HEPARIN 4000 UNITS IV (12:34)
[2025-05-12] MEDS: HEPARIN 25000 UNITS/250 ML IV (12:34)
[2025-05-12 13:14] LABS: Glucose - Point of Care 188 mg/dl (70-99)
[2025-05-12 15:50] VITALS: BP 117/50
[2025-05-12 17:15] LABS: Glucose - Point of Care 145 mg/dl (70-99)
[2025-05-12] MEDS: NOVOLOG FLEXPEN-LOW RESISTANCE SC (17:20)
[2025-05-12] MEDS: LIPITOR 40 MG PO (17:25)
[2025-05-12] MEDS: NON-FORMULARY ITEM 1 UNIT BOTH EYES (19:23)
[2025-05-12 19:40] LABS: APTT 42.2 Sec (23.4-35.0)
[2025-05-12 19:51] VITALS: BP 95/53
[2025-05-12 21:03] VITALS: BP 114/64
[2025-05-12 21:43] LABS: Glucose - Point of Care 216 mg/dl (70-99)
[2025-05-12] MEDS: LANTUS 0.2 UNITS SC (22:24)
[2025-05-13] VITALS (9 sets, daily range): BP systolic 103–131; BP diastolic 56–88; BMI 34.9
--- NOTE | 2025-05-13 00:30 | PTCARENOTE ---
Pt BG 216 at HS check, CVNP made aware, home basal insulin ordered and administered. Pt up to the bathroom with standby assistance, heparin and cardizem gtt maintained, assessment of needs ongoing.
[2025-05-13 02:31] LABS: Hematocrit 30.8 % (37.0-47.0); Hemoglobin 10.0 g/dL (12.0-16.0); Mean Corp Hgb Conc. 32.5 g/dL (33.0-37.0); Mean Corpuscular Volume 80.0 fL (81.0-99.0); Platelet Count 219 10^3/uL (130-400); Red Cell Dist. Width 14.3 % (11.5-14.5)
[2025-05-13 02:41] LABS: APTT 42.4 Sec (23.4-35.0)
[2025-05-13 02:51] LABS: Blood Urea Nitrogen 18 mg/dl (7-17); Calcium 8.1 mg/dl (8.4-10.2); Carbon Dioxide 26 mmol/L (22-30); Chloride 108 mmol/L (98-107); Estimated Creatinine Clearance 92 ml/min; Glucose 162 mg/dl (70-99); Potassium 4.0 mmol/L (3.5-5.1); Sodium 135 mmol/L (135-145); eGFR > 60.00
--- NOTE | 2025-05-13 04:30 | PTCARENOTE ---
Heparin gtt adjusted per protocol, pt up OOB with stand by assistance to the bathroom, assessment of needs ongoing, VSS, call la within reach.
[2025-05-13] MEDS: CARDIZEM 125 IV (06:38)
[2025-05-13 06:53] LABS: Magnesium 1.8 mg/dl (1.6-2.3)
--- NOTE | 2025-05-13 06:54 | PTCARENOTE ---
Pt had 16-beat run of vtach on the monitor, asymptomatic, pressure stable, Cardizem continued at 15, CVNP made aware, added Mg to labs previously drawn.
--- NOTE | 2025-05-13 08:45 | PTCARENOTE ---
Patient received from assistant casino shift manager resting in bed, AAO x 3, JACKSON, denies pain. Afib via cm, SaO2 @ 97% on RA. Cardizem and heparin gtts infusing as ordered. R groin procedural site stable, distal pulse palpable. Patient assisted oob to bathroom, am
care performed, settled to chair for breakfast. Patient updated to plan of care for the day, in agreement. See work list for full assessment and interventions performed.
[2025-05-13] MEDS: PLAVIX 75 MG PO (08:55)
[2025-05-13] MEDS: HEPARIN 25000 UNITS/250 ML IV (08:55)
[2025-05-13] MEDS: LOW STRENGTH ASPIRIN 81 MG PO (08:55)
[2025-05-13] MEDS: NOVOLOG FLEXPEN-LOW RESISTANCE 1 UNITS SC ×2 (09:44→13:32)
[2025-05-13 09:45] LABS: Glucose - Point of Care 183 mg/dl (70-99)
[2025-05-13 10:28] LABS: APTT 52.3 Sec (23.4-35.0)
--- NOTE | 2025-05-13 12:01 | PTCARENOTE ---
VS obtained, assessment unchanged. Heparin and diltiazem infusions continue. Patient remains oob in chair, ordering lunch, at bedside. Denies pain.
--- NOTE | 2025-05-13 13:29 | W.PN.CD ---
Today's Communication / Plan
-
Continue heparin drip
Diltiazem 60 mg every 6 hours stop Dilt drip
N.p.o. after midnight for cath
Impression / Plan
-
74 y/o female with PAF on apixaban, HTN, HLD, DM2, obesity and CAD with prior PCI of the mLAD with known, asymptomatic ISR occlusion on follow up cardiac catheterization, now presenting with inferior STEMI complicated by bradycardia and hypotension
requiring pressors, hypoxia and lethargy, consistent with cardiogenic shock. Now s/p PCI to RCA.
#Inferior STEMI
-She was initially in cardiogenic shock requiring norepinephrine and dopamine. Both have been weaned off.
-[facility] 05/10/2025: Patent mid LAD stent, 50% lesion at the origin of the diagonals, 70% lesion in the proximal margin of distal LAD stent, 60-70% ISR of the stented segment, acute thrombotic occlusion of proximal RCA, s/p thrombectomy and JAZMIN in
proximal RCA; LVEDP 35 mmHg
-S/p Integrilin
-Continue aspirin, clopidogrel, and statin.
-Plan is for repeat [facility] on Wednesday to interrogate ISR of LAD stent
#PAF now in AF RVR
- start dilt gtt transition to Dilt 60 mg every 6 hours
- start heparin and monitor Hgb no evidence of new bleeding
-CHADS2-Vasc = 5 (HTN, Age x1, DM, vascular disease, female).
-Ultimately resume apixaban, monitor hgb for worsening bleeding
#Vaginal bleeding
-Continue DAPT given fresh stent and extensive thrombus burden
-monitor no evidence of new bleeding
#HLD
#DM2
#Obesity
Subjective: Feels improved
Physical Exam
Vital Signs/Labs
Vital Signs
Temp Pulse Resp BP Pulse Ox
98.2 F 97 15 116/79 97
05/13/25 12:01 05/13/25 12:01 05/13/25 12:01 05/13/25 12:00 05/13/25 12:01
05/12/25 05/13/25 05/14/25
06:59 06:59 06:59
Actual Weight 203 lb 0.732 oz
05/13/25 02:24
05/13/25 02:24
PT 13.8 Sec (11.4-14.6) 05/10/25 18:35
INR 1.01 05/10/25 18:35
APTT 52.3 Sec (23.4-35.0) H 05/13/25 10:09
Magnesium 1.8 mg/dl (1.6-2.3) 05/13/25 02:24
Triglycerides 140 mg/dl (10-149) 05/12/25 03:43
LDL Cholesterol, Calc 48 mg/dl 05/12/25 03:43
VLDL Cholesterol, Calc 28 mg/dl (0-30) 05/12/25 03:43
HDL Cholesterol 31 mg/dl 05/12/25 03:43
LAB Results
05/10/25 05/10/25 05/11/25
18:35 21:17 03:10
Troponin I 0.019 33.400 H* D 52.900 H* D
05/11/25 05/11/25 05/12/25
08:30 12:50 00:30
Troponin I Cancelled 42.100 H* Cancelled
Physical Exam
Constitutional: No acute distress and Comfortable
EENT: Anicteric
Cardiovascular: Rhythm/rate is irregular
Respiratory: Respiratory effort normal and Lungs clear to auscul.
GI: Soft
Neuro/Psych: AO x 3
Data Reviewed
-
Date of Service: May 13, 2025
EKG: Tracing Personally Visualized and interpreted (A-fib)
Echo: Report Reviewed by me
Labs: Labs Reviewed by me
[2025-05-13 13:31] LABS: Glucose - Point of Care 169 mg/dl (70-99)
[2025-05-13] MEDS: CARDIZEM 60 MG PO ×3 (14:12→21:39)
--- NOTE | 2025-05-13 15:58 | PTCARENOTE ---
VS obtained, assessment stable. Patient resting comfortably.
[2025-05-13 17:29] LABS: APTT 76.3 Sec (23.4-35.0)
[2025-05-13 17:58] LABS: Glucose - Point of Care 205 mg/dl (70-99)
[2025-05-13] MEDS: NOVOLOG FLEXPEN-LOW RESISTANCE 2 UNITS SC (17:58)
[2025-05-13] MEDS: LIPITOR 40 MG PO (18:38)
[2025-05-13 21:22] LABS: Glucose - Point of Care 269 mg/dl (70-99)
[2025-05-13] MEDS: NON-FORMULARY ITEM 1 UNIT BOTH EYES (21:22)
[2025-05-13] MEDS: LANTUS 0.1 UNITS SC (22:56)
[2025-05-13 23:49] LABS: APTT 85.7 Sec (23.4-35.0)
[2025-05-14] VITALS (15 sets, daily range): BP systolic 91–149; BP diastolic 60–90
--- NOTE | 2025-05-14 00:49 | PTCARENOTE ---
Assumed care on pt at change of shift, transferred to 2246 at change of shift. aaox3, denies any c/o cp or SOB. Heparin gtt infusing at 1600unit/hr. Afib on tele, HR mid 70's. Ambulates self to bathroom, good urine output, clear yellow. R groin dsg
CDI, echymotic, free or bleeding or swelling. POC ongoing, call la within reach.
[2025-05-14] MEDS: HEPARIN 25000 UNITS/250 ML IV ×2 (02:16→22:12)
[2025-05-14 05:43] LABS: Hematocrit 34.6 % (37.0-47.0); Hemoglobin 11.4 g/dL (12.0-16.0); Mean Corp Hgb Conc. 32.9 g/dL (33.0-37.0); Mean Corpuscular Volume 80.5 fL (81.0-99.0); Platelet Count 231 10^3/uL (130-400); Red Cell Dist. Width 14.6 % (11.5-14.5)
[2025-05-14 06:08] LABS: APTT 108.2 Sec (23.4-35.0)
[2025-05-14 06:12] LABS: Blood Urea Nitrogen 11 mg/dl (7-17); Calcium 9.1 mg/dl (8.4-10.2); Carbon Dioxide 24 mmol/L (22-30); Chloride 109 mmol/L (98-107); Estimated Creatinine Clearance 92 ml/min; Glucose 158 mg/dl (70-99); Potassium 4.2 mmol/L (3.5-5.1); Sodium 137 mmol/L (135-145); eGFR > 60.00
[2025-05-14 06:29] LABS: Glucose - Point of Care 171 mg/dl (70-99)
[2025-05-14 07:46] LABS: Glucose - Point of Care 185 mg/dl (70-99)
[2025-05-14] MEDS: NOVOLOG FLEXPEN-LOW RESISTANCE SC ×2 (08:15→18:01)
[2025-05-14] MEDS: PLAVIX 75 MG PO (08:21)
[2025-05-14] MEDS: LOW STRENGTH ASPIRIN 81 MG PO (08:21)
[2025-05-14] MEDS: CARDIZEM 60 MG PO ×4 (10:31→22:23)
--- NOTE | 2025-05-14 11:37 | PTCARENOTE ---
Assumed care on pt at change of shift. AAOx3, patient denies pain or SOB. Heparin drip infusing at 1600unit/hr. Afib on telemetry, HR 100-120. Right groin dressing is CDI, surrounding area echymotic. Patient is OOB and ambulating to bathroom. NPO
for planned procedure. Plan of care discussed, call la within reach.
--- NOTE | 2025-05-14 12:17 | CM ---
Reviewed chart. Mrs. Alcantara was transferred to IVU. Met with and Mrs. Alcantara to review discharge plans. She states she is awaiting cardiac cath today. She states prior to admission she resides with her spouse in a two story jade with one step
to enter. She states she has a full flight of steps to get to bedroom/full bathroom. She states she has a powder room on the first floor. She states prior to admission she was independent with ambulation and adls. She states she does not have any
DME in the home. she state she has a prescription plan. Medical work-up in progress. The discharge plan is to return home with her spouse when medically stable.
[2025-05-14 12:18] LABS: Glucose - Point of Care 172 mg/dl (70-99)
[2025-05-14] MEDS: NOVOLOG FLEXPEN-LOW RESISTANCE 1 UNITS SC (12:25)
--- NOTE | 2025-05-14 14:55 | W.PN.CD ---
Today's Communication / Plan
-
Repeat cardiac catheterization, planned iFR (+/- PCI) of the mLAD for complete revascularization.
Resume apixaban when hemostatic.
Add metoprolol succinate 25 mg daily.
Impression / Plan
-
Impression/Plan: 74 y/o female with PAF on apixaban, HTN, HLD, DM2, obesity and CAD with prior PCI of the mLAD with known, asymptomatic ISR occlusion on follow up cardiac catheterization, admitted with inferior STEMI complicated by bradycardia and
hypotension requiring pressors, hypoxia and lethargy, consistent with cardiogenic shock, now s/p PCI to RCA with stabilization.
#Inferior STEMI
-Acute, threat to life, improve/stabilized after PCI.
-She was initially in cardiogenic shock requiring norepinephrine and dopamine. Both have been weaned off.
-S/P PCI of the pRCA (Xience Skypoint 3.0 x 23 JAZMIN, post dilated with a 3.5 NC balloon) with reduction in stenosis to 0%, followed by aspiration thrombectomy of the dRCA, restoring DAVID III flow.
-Continue clopidogrel and statin.
#Residual CAD
-Cardiac catheterization showed recanalization of a previously occluded mLAD stent with70% lesion immediately proximal to the stent, which itself has a 70% ISR lesion.
-Plan for repeat cardiac catheterization, iFR (+/- PCI) of the mLAD lesion for complete revascularization.
-Aggressive secondary prevention with high dose, high potency statin. Goal LDL < 55.
-Add beta anushka for anti-anginal affect in addition to rate control for AF.
#PAF
-Chronic, intermittent, now in AF RVR.
-Rate control with diltiazem 60 mg q6H. Add metoprolol succinate 25 mg daily. D/C home sotalol.
-CHADS2-Vasc = 5 (HTN, Age x1, DM, vascular disease, female).
-Therapeutic anticoagulation with apixaban after repeat cath.
-Monitor hgb for worsening bleeding.
#Vaginal bleeding
-Continue DAPT given fresh stent and extensive thrombus burden.
-Monitor no evidence of new bleeding
#HLD
#DM2
#Obesity
Subjective/Interval History:
Weight stable.
AF/RVR has been difficult to control.
Diltiazem 60 mg q6h started and transitioned off of drip.
DATA:
Cardiac catheterization/PCI, 05/10/2025:
CONCLUSIONS
1. Right dominant circulation with a 50% lesion in the proximal LAD at the origin of the diagonals a 70% lesion in the proximal margin of the mid LAD stent followed by a long 60-70% ISR lesion of the entire stented segment and a acute, thrombotic,
100% proximal RCA lesion status post aspiration thrombectomy of the proximal RCA, successful PCI of the proximal RCA (Xience Skypoint 3.0 x 23 JAZMIN, postdilated with a 3.5 NC balloon) with reduction in proximal stenosis to 0% and restoring DAVID-3
flow in the RCA and RPDA but resulting in embolization of the clot into the large RPL with subsequent repeat aspiration thrombectomy and removal of large clot burden from the RPL, restoring DAVID-3 flow throughout the entire vessel.
2. At least mildly dilated left ventricle with akinesis of the basal to mid inferior wall and mildly impaired systolic function, LVEF = 45-50%.
3. Severely elevated filling pressures (LVEDP = 35 mmHg at 94.0 kg).
4. Cardiogenic shock (hypotension requiring pressors, lethargy, diaphoresis), recovering with improved inotropic and chronotropic support.
Transthoracic echocardiogram, 05/11/2025:
SUMMARY
1. Normal left ventricular systolic function with possible hypokinesis of the basal to mid inferior wall. LVEF 60-65%.
2. Right ventricle is dilated with reduced systolic function.
3. No significant valvular disease. Normal PASP (33 mmHg).
4. No prior study available for comparison.
Physical Exam
Vital Signs/Labs
Vital Signs
Temp Pulse Resp BP Pulse Ox
36.7 C 118 18 149/77 97
05/14/25 10:55 05/14/25 14:23 05/14/25 10:55 05/14/25 14:23 05/14/25 10:55
05/13/25 05/14/25 05/15/25
11:59 11:59 11:59
Actual Weight 92.1 kg
05/14/25 05:36
05/14/25 05:36
PT 13.8 Sec (11.4-14.6) 05/10/25 18:35
INR 1.01 05/10/25 18:35
APTT 108.2 Sec (23.4-35.0) H 05/14/25 05:36
Magnesium 1.8 mg/dl (1.6-2.3) 05/13/25 02:24
Triglycerides 140 mg/dl (10-149) 05/12/25 03:43
LDL Cholesterol, Calc 48 mg/dl 05/12/25 03:43
VLDL Cholesterol, Calc 28 mg/dl (0-30) 05/12/25 03:43
HDL Cholesterol 31 mg/dl 05/12/25 03:43
LAB Results
05/11/25 05/12/25
08:30 00:30
Troponin I Cancelled Cancelled
Physical Exam
Constitutional: No acute distress and Comfortable
EENT: Anicteric and Moist mucous membranes
Cardiovascular: Pedal edema is absent, Rhythm/rate is irregular, S1S2 is normal and Murmur/rub/gallop absent
Respiratory: Respiratory effort normal, Lungs clear to auscul., Wheeze Absent, Crackles Absent and Rhonchi Absent
GI: Soft, Distention absent, Flat, Non tender and Normal bowel sounds
Neuro/Psych: AO x 3
Other: Cath Site (Right femoral access site is mildly ecchymotic but non-tender.)
Data Reviewed
-
Date of Service: May 14, 2025
Medical Decision Making: Reviewed Test Results, Independent Historian Assessment and Test Interpretation
EKG: Tracing Personally Visualized and interpreted and Report Reviewed by me
Echo: Tracing Personally Visualized and interpreted and Report Reviewed by me
X-Ray/CT/US/MRI/NUC/PET: Image Personally Visualized and interpreted and Report Reviewed by me
Medical Tests (PFT, Pathology etc): Image Personally Visualized and interpreted and Report Reviewed by me
Labs: Labs Reviewed by me
Old Records: Reviewed
[2025-05-14 15:35] LABS: ACT-LR - POC 366 Seconds (116-155)
--- NOTE | 2025-05-14 16:04 | ITS.CL.CATH ---
Director Clinical Data - Catheterization
Cardiac Catheterization
Procedure Report:
CARDIAC CATHETERIZATION REPORT
Date of Procedure: 05/14/2025
Referring: Jacoby Narayan M.D.
INDICATION: Evaluation of LAD stenosis as part of complete revascularization after STEMI.
PROCEDURE:
1. Left heart catheterization.
2. Coronary angiography.
3. Aborted IFR of the mid LAD.
A total of 44 minutes of procedural/moderate sedation was utilized. An independent medical device engineer was present to assist with and help manage the patient's level of consciousness and physiologic status.
ACCESS:
1. 6 [place]ic left common femoral artery using a modified Seldinger technique with a micropuncture kit under ultrasound guidance.
CATHETERS:
1. 5 [place]ic JR4.
2. 6 Green[place]ic JL 4 guiding catheter.
HEMODYNAMIC DATA
Weight (kg): 92.1
AO (s/d/x, mmHg): 127/78/97
LV (s/x mmHg): 138/22
AV gradient (x, mmHg): 12
LEFT VENTRICULOGRAPHY: Not performed.
CORONARY ANGIOGRAPHY
Dominance: Right.
Left Main: Normal size, bifurcating vessel. There is no coronary artery disease.
LAD: Normal size vessel giving rise to 1 significant diagonal. There is a 70% lesion in the mid LAD immediately after the origin of the diagonal and at the proximal margin of a previously stented segment. There is diffuse, 70% ISR of the
mid LAD stent. There is a focal severe narrowing that is not initially appreciated on angiography within the mid stent.
Ramus: Congenitally absent.
Circumflex: Normal size, nondominant vessel giving rise to 1 significant obtuse marginal. There is a 30-40% lesion in the proximal circumflex immediately proximal to the origin of OM1.
RCA: Normal size, dominant vessel with a large posterolateral arcade. A patent stent is visible in the proximal vessel with no evidence of in-stent restenosis. There is a 30% lesion in the mid RCA.
INTERVENTION(S)
1. Aborted IFR of the mid LAD.
Narrative:
The decision was made to perform physiologic testing. The diagnostic catheter was removed over a wire and exchanged for a(n) JL 4.0 guiding catheter. The guiding catheter was advanced into the ascending aorta and seated in the left main coronary
artery. Additional heparin was given to obtain an ACT greater than 250 seconds. An iFR wire was zeroed outside of the body, then inserted into the guiding sheath. The wire was advanced and the transducer was normalized just outside of the guiding
catheter tip. The wire was advanced into the mid LAD where it was stopped in the mid stent. In spite of multiple attempts to advance the wire with wire torquing and maintaining to freedom, the wire would not pass the mid stent. Repeat angiography
showed a focal stenosis at the tip of the wire that was not originally appreciated and likely negates the need for IFR as it is clearly >70%. Further attempts to advance the wire seemed futile and posed a risk to patient safety, thus the procedure
was aborted at this time. The IFR wire was withdrawn and angiography was performed demonstrating stable coronary anatomy. The decision was made to consult with CT surgery regarding optimal revascularization strategy.
Closure Device: 6 Green[place]ic Angio-Seal.
Radiation (mGy): 416.86
DAP (cm2.Gy): 39.0593
Fluoroscopy time (minutes): 6.3
CONCLUSIONS
1. Right dominant circulation with a patent stent in the proximal RCA followed by a 30% lesion in the mid RCA, a 30-40% lesion in the proximal circumflex proximal to the origin of OM1, a 70% lesion at the proximal margin of the stented segment, a
long, 70% ISR lesion within the stented segment with a focal, severe narrowing in the mid stent that is not initially appreciated on angiography but is more plainly observed when the IFR wire was not able to cross this area.
2. Moderately elevated filling pressures (LVEDP = 22 mmHg at 92.1 kg).
RECOMMENDATIONS:
1. Expectant management after cardiac catheterization via left common femoral approach.
2. Limited weight bearing for one week.
3. Continue aggressive secondary prevention with clopidogrel and apixaban.
4. Consultation with CT surgery regarding optimal revascularization strategy including wire escalation PCI of the mid LAD versus MIDCAB. Given the patient's ISR, avoidance of another layer of stent may be desirable, though this is certainly
feasible if the patient is not a candidate for surgery.
5. Continue diuresis as the patient's filling pressures remain moderately elevated.
6. OMT/GDMT as hemodynamics will tolerate.
7. We will refer to cardiac rehab after complete revascularization.
Copy to: Noe Zhu M.D., Joey Worthington M.D.
Juan Mercado DO, FACC, FACP
[2025-05-14 17:59] LABS: Glucose - Point of Care 131 mg/dl (70-99)
[2025-05-14] MEDS: LIPITOR 40 MG PO (18:03)
[2025-05-14] MEDS: LANTUS 0.2 UNITS SC (22:23)
[2025-05-14] MEDS: NON-FORMULARY ITEM 1 UNIT BOTH EYES (22:23)
[2025-05-14 22:26] LABS: Glucose - Point of Care 228 mg/dl (70-99)
--- NOTE | 2025-05-14 23:10 | PTCARENOTE ---
Assumed care on pt at 1900, aaox3, denied c/o pain or SOB. L fem groin site ecchymotic with CDI dressing, no signs of bleeding or swelling noted. Heparin restarted at 2200 as per order. Afib on tele, HR 90-110's and 130's with ambulation, bp stable.
Call la within reach, POC ongoing
[2025-05-15 04:01] VITALS: BP 116/73
[2025-05-15 04:39] VITALS: BMI 35.1
[2025-05-15 04:55] LABS: APTT 77.1 Sec (23.4-35.0)
[2025-05-15 04:59] LABS: Blood Urea Nitrogen 10 mg/dl (7-17); Calcium 8.5 mg/dl (8.4-10.2); Carbon Dioxide 26 mmol/L (22-30); Chloride 107 mmol/L (98-107); Estimated Creatinine Clearance 79 ml/min; Glucose 172 mg/dl (70-99); Potassium 4.1 mmol/L (3.5-5.1); Sodium 135 mmol/L (135-145); eGFR > 60.00
[2025-05-15 05:02] LABS: Hematocrit 28.2 % (37.0-47.0); Hemoglobin 9.0 g/dL (12.0-16.0); Mean Corp Hgb Conc. 31.9 g/dL (33.0-37.0); Mean Corpuscular Volume 81.0 fL (81.0-99.0); Platelet Count 211 10^3/uL (130-400); Red Cell Dist. Width 14.6 % (11.5-14.5)
--- NOTE | 2025-05-15 05:55 | PTCARENOTE ---
Small hematoma noted right above L groin dsg, pressure held, area ecchymotic and dressing with scant amount of blood. Area softer, after pressure held. Also, lab results with hgb drop from 11.4 to 9.0 this morning. call specialist for CBC, dr. Sutton
made aware, new order to repeat hgb in 6 hours and stop heparin gtt. Bp 116/73, Hr 99, Pox 97% RA. Call la within reach, pt updated on POC.
[2025-05-15 07:15] VITALS: BP 125/74
[2025-05-15] MEDS: CARDIZEM 60 MG PO ×4 (08:37→22:09)
[2025-05-15] MEDS: PLAVIX 75 MG PO (08:38)
[2025-05-15] MEDS: LOW STRENGTH ASPIRIN 81 MG PO (08:38)
--- NOTE | 2025-05-15 08:50 | CONSULT.CT ---
Consultation
-
Date/Time Consultation Requested: 05/14/25
Date/Time Consultation Performed: 05/15/25
Requesting Provider: Dr. Juan Mercado
Performing Provider: TEJINDER Armendariz for Dr. Joey Worthington
Reason for Consultation: MID CABG Evaluation
Patient History
History of Present Illness
Ms Alicia Alcantara is a 74-year-old female with a known PMHx of paroxysmal a-fib (apixaban), obesity, HTN, HLD, T2DM (insulin), B/L TKR, Right Breast Ca (12/2024) s/p lumpectomy (02/2025) and current radiation treatment (14/15 rounds completed,
followed by Dr. Dr. Dean ([facility] [place]), and CAD with prior PCI (LAD, 2020) who presented to [facility] ED on 05/10/25 with complaints of chest pain. Patient reported chest pain started a few hours prior to ED arrival. She reported
she has been having progressive dyspnea on exertion and increased lower extremity edema over the last few weeks in which she was scheduled for an elective LHC at [place] in the next few days. She reported her edema has been progressing over the
last few weeks and was not showing improvement with taking her 'water pill'. She further reported orthopnea and decreased mobility due to her dyspnea.
Upon ED arrival, patient was found to be bradycardic, hypotensive, lethargic, and diaphoretic. She was initiated on vasopressor support. EKG showed NSR with ST elevation in inferior leads. Initial Troponin was 33.4 (peak 52.9 on 05/11). Patient
ruled-in with inferior STEMI with subsequent cardiogenic shock. She was administered Brilinta, Heparin, and Fentanyl and taken for LHC. LHC with Dr. Mercado reported patent mid LAD stent, 50% lesion at origin of diagonals, 70% lesion in proximal
margin of distal LAD stent, 60-70% ISR of stented segment, acute thrombotic occlusion of pRCA, s/p thrombectomy and JAZMIN to proximal RCA with LVEF of 45-50% and of LVEDP of 35 mmHg.Patient obtained a TTE on 05/11/25 reporting LVEF 60-65%, dilated RV
with reduced systolic function, and no valvular disease with PASP of 33mmHg. On 05/15/25, patient was taken for [facility] for planned iFR (+/- PCI) of mLAD with inability to cross IFR wire. Cardiac Surgery was consulted for MID-CAB evaluation.
Of note, patient has recently been diagnosed with breast cancer (12/2024) in which she has been followed by Dr. Dean, [facility] with [facility]. She has undergone a right lumpectomy 02/24/25 and initiated radiation therapy. She reported
she has undergone 14 of her 15 radiation treatments, in which she has missed her final therapy due to her MD. She further reported her oncologist wanted to evaluate an abnormality on her L breast, requiring an MRI. She had recently attempted to
undergo an MRI but was unable to tolerating testing due to new orthopnea. She is awaiting for her MRI to be rescheduled. She is further awaiting a Dexascan scheduled for 06/21/25 and mammogram upon radiation completion. Her next follow-up appointment
with oncology is 07/06/25.
Past Medical History
Past Medical History: Atrial Fib (Apixaban), CAD (mLAD PCI with BLASTING CLAY MINER ISR 06/18/20), Cancer (Right Breast Ca (s/p Lumpectomy, Radiation)), MAHAN, HTN, Hypercholesterolemia, IDDM, NIDDM and Radiation
Past Surgical History
Past Surgical History: Orthopedic (B/L TKR), PCI/Stent (LAD, 2020) and Other (R Breast Lumpectomy)
Social History
Drug: None
Tobacco: Former Smoker
Personal:
Living: With Spouse
Allergies
Allergy/AdvReac Type Severity Reaction Status Date / Time
No Known Allergies Allergy Unverified 05/10/25 18:33
Home Medications
�Medication �Instructions �Recorded �Confirmed �Type
apixaban 5 mg tablet (Eliquis) 5 mg PO BID Blood Clot 05/11/25 05/11/25 History
Prevention/Tx
aspirin 81 mg capsule 81 mg PO DAILY Heart 05/11/25 05/11/25 History
Disease/Condition
atorvastatin 40 mg tablet 40 mg PO DAILY High Cholesterol 05/11/25 05/11/25 History
empagliflozin 25 mg tablet 25 mg PO DAILY Diabetes 05/11/25 05/11/25 History
(Jardiance)
famotidine 20 mg tablet (Pepcid) 20 mg PO DAILY Gastrointestinal 05/11/25 05/11/25 History
Issue
insulin detemir U-100 100 unit/mL 30 unit SC Diabetes 05/11/25 History
(3 mL) subcutaneous pen
metformin 1,000 mg tablet 1,000 mg PO BID Diabetes 05/11/25 05/11/25 History
sotalol 80 mg tablet 80 mg PO BID Arrhythmia 05/11/25 05/11/25 History
valsartan 160 mg tablet 160 mg PO DAILY Blood Pressure 05/11/25 05/11/25 History
Review of Systems
-
History Source: Patient
General: Reports No Symptoms
HEENT: Reports No Symptoms
Respiratory: Reports MAHAN
Cardiac: Reports CAD and Edema
Abdomen/GI: Reports Constipation
: Reports No Symptoms
Musculoskeletal: Reports No Symptoms
Skin: Reports No Symptoms
Neurological: Reports No Symptoms
Vascular: Reports No Symptoms
Physical Exam
Vital Signs
Temp 98.3 F 05/15/25 07:10
Temp route: Oral 05/15/25 07:10
Pulse 121 05/15/25 07:30
Rhythm: Atrial fibrillation 05/14/25 22:37
Resp Rate 18 05/15/25 07:10
Blood pressure 125/74 05/15/25 07:15
Blood pressure extremity used: Left upper arm 05/15/25 07:10
Position: Lying 05/15/25 07:10
MAP (cuff-Angela Monitor) 85 05/15/25 07:15
SaO2 94 05/15/25 07:10
Nasal Cannula flow liters per minute 2 05/12/25 08:14
Oxygen Mode of Delivery Room air 05/15/25 07:10
Can the patient verbally communicate their pain? Yes 05/14/25 22:37
Pain scale ratin 05/11/25 13:09
Arterial Systolic Pressure 113 05/11/25 09:20
Arterial Diastolic Pressure 64 05/11/25 09:20
MAP (E-Fmzt-Qflbvls Monitor) 82 05/11/25 09:20
Actual Weight 92.8 kg 05/15/25 04:39
Body Mass Index (BMI) 35.1 05/15/25 04:39
Labs
05/15/25 04:29
PT 13.8 Sec (11.4-14.6) 05/10/25 18:35
APTT Cancelled 05/15/25 06:00
Hemoglobin A1c 6.9 % (4.0-5.9) H 05/10/25 21:17
Troponin I Cancelled 05/12/25 00:30
Exam
General: No Apparent Distress and Comfortable
HEENT: Moist Mucous Membranes and PERRLA
Respiratory: Clear
Cardiac: S1/S2 and Irregular Rhythm
GI: Soft, Non Tender and Normal Bowel Sounds
Rectal: Deferred by Provider
Skin: Warm and Dry
Neuro: AO x 3 and No Motor Deficits
Extremities: Lower Level Edema and Pulses (+2 DP B/L)
Psych: Calm
Assessment / Plan
-
#CAD with STEMI
- s/p PCI - JAZMIN to RCA 05/10/25, on DAPT (Plavix/ASA)
- s/p unsuccessful iFR of mLAD with inability to cross IFR wire on 05/14/25
- Cardiac Surgery consulted in consideration of MID CAB
- Patient's case will be discussed with Attending Physician.
- Plan for outpatient consultation appointment, scheduled within discharge paperwork.
- Medication holds leading to surgical intervention to be discussed at time of appointment.
- Pre-operative labwork to be ordered without outpatient appointment.
- Will obtain pre-operative diagnostic testing while inpatient:
- CT Chest
- Cerebrovascular US
- Bedside PFT's
#Breast Ca
- PMHx of Right breast Ca s/p lumpectomy and radiation therapy
- Patient follows with Dr. Love - [facility] [place]
- Patient reported abnormalities within L breast requiring further diagnostic testing
- unable to obtain initial MRI due to orthopnea and now STEMI
- rescheduling of MRI underway per patient report
- Current scheduled for Dexascan 06/21/25 and Oncology follow-up 07/06/25
#Atrial Fibrillation
- Known PMHx of paroxysmal AF, now AF with RVR
- Cardiology following
- Medical management per Cardiology
- Anticipating KIRILL/DCCV tomorrow
Data Reviewed
-
EKG: Report Reviewed by me
Director Of Field Service: Report Reviewed by me
Echo: Report Reviewed by me
Labs: Labs Reviewed by me
[2025-05-15 10:06] LABS: Glucose - Point of Care 180 mg/dl (70-99)
[2025-05-15] MEDS: NOVOLOG FLEXPEN-LOW RESISTANCE 1 UNITS SC ×2 (10:07→13:46)
[2025-05-15] MEDS: VENTOLIN NEBULES 2.5 MG INH (10:13)
--- NOTE | 2025-05-15 10:20 | PN.CDI ---
CDI
- -
CDI:
Physician Documentation Request
Admit Date: 05/10/25 20:35
Dear Cardiology,
Please review the following and provide your response in the progress notes.
Clinical Indicators:
- Patient admit for STEMI
- No documented history renal disease
- 500mg IVF
Laboratory Tests
05/10/25 05/12/25 05/14/25
18:35 03:43 05:36
Creatinine 1.1 H 0.7 0.6
eGFR 53.06 > 60.00 > 60.00
Please clarify which of the following accurately represents the patient's renal status:
HUE, now resolved
CKD 2
Other (please specify)
Criteria for HUE*
1 Increase in serum creatinine by > or = to 0.3 mg/dL (> or = to 26.5 micromol/L) within 48 hours, OR
2 Increase in serum creatinine to > or = to 1.5 times baseline, which is known or presumed to have occurred within 7 days, OR
3 Urine volume < 0.5 nL/kg/hour for six hours
Stages of Chronic Kidney Disease*
Level Description GFR
G1 Normal or High >90
G2 Mildly decreased 60-89
G3a Mildly to moderately decreased 45-59
G3b Moderately to severely decreased 30-44
G4 Severely decreased 15-29
G5 Kidney failure <15
Use of terms such as suspected, likely, concern for, or probable (associated with a specific diagnosis that is being evaluated, monitored, or treated as if it exists) are acceptable and can be coded in the inpatient setting, when documented at the
time of discharge.
Thank you,
Uri Hall RN
CDI Specialist
Please use your independent medical judgment in providing your response.
*Source: Kidney Disease: Improving Global Outcomes (KDIGO) 2012
--- NOTE | 2025-05-15 10:49 | W.PN.CD ---
Addendum entered and electronically signed by Ian Sutton MD 05/15/25 11:14:
Response to CDI query: HUE, resolved.
Original Note:
Today's Communication / Plan
-
Add metoprolol succinate 50 mg daily for additional rate control
Resume apixaban 5 mg twice daily tonight if repeat hemoglobin is stable
KIRILL/DCCV tomorrow
Appreciate CT surgery evaluation for consideration of LAD bypass
Impression / Plan
-
Impression/Plan: 74 y/o female with PAF on apixaban, HTN, HLD, DM2, obesity and CAD with prior PCI of the mLAD with known, asymptomatic ISR occlusion on follow up cardiac catheterization, admitted with inferior STEMI complicated by bradycardia and
hypotension requiring pressors, hypoxia and lethargy, consistent with cardiogenic shock, now s/p PCI to RCA with stabilization.
Cardiology: Mercado
#Inferior STEMI
-Acute, threat to life, improved/stabilized after PCI.
-She was initially in cardiogenic shock requiring norepinephrine and dopamine., now resolved.
-S/P PCI of the pRCA (Xience Skypoint 3.0 x 23 JAZMIN, post dilated with a 3.5 NC balloon) with reduction in stenosis to 0%, followed by aspiration thrombectomy of the dRCA, restoring DAVID III flow.
-Continue clopidogrel and statin.
#Residual CAD
-Cardiac catheterization on 05/10 showed recanalization of a previously occluded mLAD stent with70% lesion immediately proximal to the stent, which itself has a 70% ISR lesion.
-Repeat LHC on 05/14: Aborted IFR of the mid LAD, concern for severe stenosis
-CT surgery is evaluating for bypass. Will be done as an outpatient in >30 days given recent stent and unable to interrupt DAPT
-Aggressive secondary prevention with high dose, high potency statin. Goal LDL < 55.
-Add beta anushka for anti-anginal affect in addition to rate control for AF.
#L groin hematoma
-Hgb 10 -> 11.4 -> 9.0. Pressure held overnight. Looks stable on exam
-Heparin on hold
-Resume apixaban tonight if repeat CBC stable
#PAF
-Chronic, intermittent, now in AF RVR.
-Rate control with diltiazem 60 mg q6H. Add metoprolol succinate 50 mg daily. D/C home sotalol.
-CHADS2-Vasc = 5 (HTN, Age x1, DM, vascular disease, female).
-Plan for KIRILL/DCCV tomorrow
-Resume apixaban tonight if hemoglobin stable
#Vaginal bleeding
-Continue DAPT given fresh stent and extensive thrombus burden.
-Monitor no evidence of new bleeding
#HLD
#DM2
#Obesity
Subjective/Interval History:
She is asymptomatic from atrial fibrillation. Pain in her left groin (yesterday's cath site).
DATA:
Cardiac catheterization/PCI, 05/10/2025:
CONCLUSIONS
1. Right dominant circulation with a 50% lesion in the proximal LAD at the origin of the diagonals a 70% lesion in the proximal margin of the mid LAD stent followed by a long 60-70% ISR lesion of the entire stented segment and a acute, thrombotic,
100% proximal RCA lesion status post aspiration thrombectomy of the proximal RCA, successful PCI of the proximal RCA (Xience Skypoint 3.0 x 23 JAZMIN, postdilated with a 3.5 NC balloon) with reduction in proximal stenosis to 0% and restoring DAVID-3
flow in the RCA and RPDA but resulting in embolization of the clot into the large RPL with subsequent repeat aspiration thrombectomy and removal of large clot burden from the RPL, restoring DAVID-3 flow throughout the entire vessel.
2. At least mildly dilated left ventricle with akinesis of the basal to mid inferior wall and mildly impaired systolic function, LVEF = 45-50%.
3. Severely elevated filling pressures (LVEDP = 35 mmHg at 94.0 kg).
4. Cardiogenic shock (hypotension requiring pressors, lethargy, diaphoresis), recovering with improved inotropic and chronotropic support.
Transthoracic echocardiogram, 05/11/2025:
SUMMARY
1. Normal left ventricular systolic function with possible hypokinesis of the basal to mid inferior wall. LVEF 60-65%.
2. Right ventricle is dilated with reduced systolic function.
3. No significant valvular disease. Normal PASP (33 mmHg).
4. No prior study available for comparison.
Physical Exam
Vital Signs/Labs
Vital Signs
Temp Pulse Resp BP Pulse Ox
98.3 F 123 24 125/74 95
05/15/25 07:10 05/15/25 10:14 05/15/25 10:14 05/15/25 07:15 05/15/25 10:14
05/14/25 05/15/25 05/16/25
06:59 06:59 06:59
Actual Weight 204 lb 9.423 oz
05/15/25 04:29
PT 13.8 Sec (11.4-14.6) 05/10/25 18:35
INR 1.01 05/10/25 18:35
APTT Cancelled 05/15/25 06:00
Magnesium 1.8 mg/dl (1.6-2.3) 05/13/25 02:24
Triglycerides 140 mg/dl (10-149) 05/12/25 03:43
LDL Cholesterol, Calc 48 mg/dl 05/12/25 03:43
VLDL Cholesterol, Calc 28 mg/dl (0-30) 05/12/25 03:43
HDL Cholesterol 31 mg/dl 05/12/25 03:43
Physical Exam
Constitutional: No acute distress and Comfortable
Cardiovascular: Pedal edema is absent, Rhythm/rate is irregular, S1S2 is normal and Murmur/rub/gallop absent
Respiratory: Respiratory effort normal and Lungs clear to auscul.
Neuro/Psych: AO x 3
Other: Cath Site (R groin with mild ecchymosis, non-tender, soft; L groin with some induration and moderate ecchymosis, mildly TTP)
Data Reviewed
-
Date of Service: May 15, 2025
Medical Decision Making: Reviewed Test Results, Test Interpretation and Review of Case with other Provider
EKG: Tracing Personally Visualized and interpreted
Echo: Report Reviewed by me
Labs: Labs Reviewed by me
[2025-05-15 12:14] VITALS: BP 153/89
[2025-05-15] MEDS: TOPROL XL 50 MG PO (12:27)
[2025-05-15 13:12] LABS: Hematocrit 29.0 % (37.0-47.0); Hemoglobin 9.5 g/dL (12.0-16.0); Mean Corp Hgb Conc. 32.8 g/dL (33.0-37.0); Mean Corpuscular Volume 81.7 fL (81.0-99.0); Platelet Count 217 10^3/uL (130-400); Red Cell Dist. Width 14.6 % (11.5-14.5)
--- NOTE | 2025-05-15 13:28 | PTCARENOTE ---
Assumed care of the pt @ 0700. Pt is AAOx3 A fib on the monitor bp stable. Left groin cath site ecchymotic and small hematoma. Repeat Hgb stable. Pt went for Ct scan and US as ordered. POC discussed with pt. [facility] called
for an update on patients condition. Family at bedside. Call la within reach.
[2025-05-15 13:43] LABS: Glucose - Point of Care 167 mg/dl (70-99)
--- NOTE | 2025-05-15 14:37 | CM ---
Reviewed chart. Met with Mrs. Anderson to review discharge plans. She states she is feeling well and waiting recommendations from the medical team. Prior to admission she resides with her spouse in a two story jade with one step to enter. She has a
full flight of steps to get to bedroom/full bathroom. She has a powder room on the first floor. Prior to admission she was independent with ambulation and adls. She does not have any DME in the home. She has a prescription plan. Medical work-up
in progress. The discharge plan is to return home with her spouse when medically stable.
[2025-05-15 15:45] VITALS: BP 119/66
[2025-05-15] MEDS: LIPITOR 40 MG PO (18:43)
[2025-05-15 18:44] LABS: Glucose - Point of Care 230 mg/dl (70-99)
[2025-05-15] MEDS: NOVOLOG FLEXPEN-LOW RESISTANCE 2 UNITS SC (18:44)
[2025-05-15 19:16] VITALS: BP 115/67
[2025-05-15] MEDS: ELIQUIS 5 MG PO (19:44)
[2025-05-15] MEDS: TYLENOL 650 MG PO (19:44)
[2025-05-15 22:06] VITALS: BP 122/98
[2025-05-15 22:08] LABS: Glucose - Point of Care 205 mg/dl (70-99)
[2025-05-15] MEDS: NON-FORMULARY ITEM 1 UNIT BOTH EYES (22:08)
[2025-05-15] MEDS: LANTUS 0.2 UNITS SC (22:08)
--- NOTE | 2025-05-15 22:39 | PTCARENOTE ---
Received pt at change of shift resting in bed. Afib on tele, HR 90's-120's. pt denies any CP or SOB at this time. PRN Tylenol administered per pt request for c/o headache--see AUG. pt verbalizes relief. Left groin site w/ old drainage noted on
dressing. Ecchymotic around site. Right femoral site intact and CRAB CATCHER. pt updated on plan of care and encouraged pt to call RN w/ any questions/concerns. Call la within reach.
[2025-05-16] VITALS (11 sets, daily range): BP systolic 106–134; BP diastolic 53–85; BMI 35.2
[2025-05-16 05:12] LABS: Hematocrit 27.6 % (37.0-47.0); Hemoglobin 9.0 g/dL (12.0-16.0); Mean Corp Hgb Conc. 32.6 g/dL (33.0-37.0); Mean Corpuscular Volume 81.4 fL (81.0-99.0); Platelet Count 229 10^3/uL (130-400); Red Cell Dist. Width 14.6 % (11.5-14.5)
[2025-05-16 05:45] LABS: Glucose - Point of Care 201 mg/dl (70-99)
--- NOTE | 2025-05-16 06:13 | PTCARENOTE ---
Meir obtained this AM, resulted 201. pt received 20 units of Lantus last night at 2200 for a blood sugar of 205. pt NPO since midnight. Reached out to ERIKA Kruse. Instructed RN to hold sliding scale Insulin this AM since pt is NPO.
[2025-05-16] MEDS: PLAVIX 75 MG PO (07:46)
[2025-05-16] MEDS: LOW STRENGTH ASPIRIN 81 MG PO (07:46)
[2025-05-16] MEDS: ELIQUIS 5 MG PO ×2 (07:47→19:48)
[2025-05-16] MEDS: TOPROL XL 50 MG PO (07:47)
[2025-05-16] MEDS: CARDIZEM 60 MG PO ×4 (07:47→22:36)
--- NOTE | 2025-05-16 08:36 | W.PN.UPDATE ---
Update Note
Progress Note Update
Patient was given follow up appointment with Dr. Worthington. It will be on May @ 2pm. Appointment was added to discharge instructions. CT surgery will sign off at this time. Please re-consult if needed.
--- NOTE | 2025-05-16 09:56 | CM ---
Reviewed chart. Met with Mrs. Alcantara to review discharge plans. She states she is going for an Ablation today and has a follow up appointment with CT Surgery at the end of month. Prior to admission she resides with her spouse in a two story jade
with one step to enter. She has a full flight of steps to get to bedroom/full bathroom. She has a powder room on the first floor. Prior to admission she was independent with ambulation and adls. She does not have any DME in the home. She has a
prescription plan. Medical work-up in progress. The discharge plan is to return home with her spouse when medically stable.
--- NOTE | 2025-05-16 10:06 | PTCARENOTE ---
Assumed care of the pt @ 0700. Pt is AAOx3 A fib on tele rates 110-130 bp stable. Left groin cath site ecchymotic sm area above dressing site firm to touch. + palpable dp pulses. Pt is independent in the room. NPO for procedure. Report given to CCL
RN for KIRILL Ablation.
[2025-05-16] MEDS: NOVOLOG FLEXPEN-LOW RESISTANCE SC (10:12)
--- NOTE | 2025-05-16 11:10 | W.PN.CD ---
Today's Communication / Plan
-
KIRILL/DCCV today
Impression / Plan
-
Impression/Plan: 74 y/o female with PAF on apixaban, HTN, HLD, DM2, obesity and CAD with prior PCI of the mLAD with known, asymptomatic ISR occlusion on follow up cardiac catheterization, admitted with inferior STEMI complicated by bradycardia and
hypotension requiring pressors, hypoxia and lethargy, consistent with cardiogenic shock, now s/p PCI to RCA with stabilization.
Cardiology: Mercado
#Inferior STEMI
-improved/stabilized after PCI.
-She was initially in cardiogenic shock requiring norepinephrine and dopamine., now resolved.
-S/P PCI of the pRCA (Xience Skypoint 3.0 x 23 JAZMIN, post dilated with a 3.5 NC balloon) with reduction in stenosis to 0%, followed by aspiration thrombectomy of the dRCA, restoring DAVID III flow on 05/10
-Continue clopidogrel and statin. Also on eliquis for A fib, and s/p one week triple therapy.
#Residual CAD
-Cardiac catheterization on 05/10 showed recanalization of a previously occluded mLAD stent with70% lesion immediately proximal to the stent, which itself has a 70% ISR lesion.
-Repeat LHC on 05/14: Aborted IFR of the mid LAD, concern for severe stenosis
-CT surgery is evaluating for bypass. Will be done as an outpatient in >30 days given recent stent and unable to interrupt DAPT
-Aggressive secondary prevention with high dose, high potency statin. Goal LDL < 55.
-Add beta anushka for anti-anginal affect in addition to rate control for AF.
#L groin hematoma
-stable, trend Hgb
#Paroxysmal A fib
- now in AF with RVR.
-Continue with diltiazem 60 mg q6H. and metoprolol succinate 50 mg daily. D/C'd home sotalol this admission.
-CHADS2-Vasc = 5 (HTN, Age x1, DM, vascular disease, female).
-eliquis for OAC
-Plan for KIRILL/DCCV today
#Vaginal bleeding
-Monitor: no evidence of new bleeding
#HLD
#DM2
#Obesity
DATA:
Cardiac catheterization/PCI, 05/10/2025:
CONCLUSIONS
1. Right dominant circulation with a 50% lesion in the proximal LAD at the origin of the diagonals a 70% lesion in the proximal margin of the mid LAD stent followed by a long 60-70% ISR lesion of the entire stented segment and a acute, thrombotic,
100% proximal RCA lesion status post aspiration thrombectomy of the proximal RCA, successful PCI of the proximal RCA (Xience Skypoint 3.0 x 23 JAZMIN, postdilated with a 3.5 NC balloon) with reduction in proximal stenosis to 0% and restoring DAVID-3
flow in the RCA and RPDA but resulting in embolization of the clot into the large RPL with subsequent repeat aspiration thrombectomy and removal of large clot burden from the RPL, restoring DAVID-3 flow throughout the entire vessel.
2. At least mildly dilated left ventricle with akinesis of the basal to mid inferior wall and mildly impaired systolic function, LVEF = 45-50%.
3. Severely elevated filling pressures (LVEDP = 35 mmHg at 94.0 kg).
4. Cardiogenic shock (hypotension requiring pressors, lethargy, diaphoresis), recovering with improved inotropic and chronotropic support.
Transthoracic echocardiogram, 05/11/2025:
SUMMARY
1. Normal left ventricular systolic function with possible hypokinesis of the basal to mid inferior wall. LVEF 60-65%.
2. Right ventricle is dilated with reduced systolic function.
3. No significant valvular disease. Normal PASP (33 mmHg).
4. No prior study available for comparison.
Physical Exam
Vital Signs/Labs
Vital Signs
Temp Pulse Resp BP Pulse Ox
97.9 F 104 18 126/84 97
05/16/25 07:21 05/16/25 09:00 05/16/25 07:21 05/16/25 07:18 05/16/25 07:21
05/15/25 05/16/25 05/17/25
06:59 06:59 06:59
Actual Weight 92.8 kg 93 kg
05/16/25 04:38
05/15/25 04:29
PT 13.8 Sec (11.4-14.6) 05/10/25 18:35
INR 1.01 05/10/25 18:35
APTT Cancelled 05/15/25 06:00
Magnesium 1.8 mg/dl (1.6-2.3) 05/13/25 02:24
Triglycerides 140 mg/dl (10-149) 05/12/25 03:43
LDL Cholesterol, Calc 48 mg/dl 05/12/25 03:43
VLDL Cholesterol, Calc 28 mg/dl (0-30) 05/12/25 03:43
HDL Cholesterol 31 mg/dl 05/12/25 03:43
Physical Exam
Constitutional: No acute distress and Comfortable
EENT: Moist mucous membranes
Cardiovascular: JVD pressure is normal, Systolic murmur absent, Rhythm/rate is irregular and Pedal edema present
Respiratory: Respiratory effort normal and Lungs clear to auscul.
Neuro/Psych: AO x 3
Data Reviewed
-
Date of Service: May 16, 2025
Labs: Labs Reviewed by me
[2025-05-16 12:34] LABS: Glucose - Point of Care 186 mg/dl (70-99)
[2025-05-16] MEDS: NOVOLOG FLEXPEN-LOW RESISTANCE 1 UNITS SC (12:39)
[2025-05-16 15:00] LABS: Glucose - Point of Care 161 mg/dl (70-99)
[2025-05-16 17:56] LABS: Glucose - Point of Care 215 mg/dl (70-99)
[2025-05-16] MEDS: NOVOLOG FLEXPEN-LOW RESISTANCE 2 UNITS SC (17:56)
[2025-05-16] MEDS: LIPITOR 40 MG PO (17:56)
--- NOTE | 2025-05-16 21:41 | PTCARENOTE ---
Rec'd pt at change of shift. Pt AAO*3, VSS, and SR on tele monitor with HR in the 80's. Pt denies any pain or discomfort but reports positional discomfort from left groin site. Site ecchymotic and soft to touch (no change from previous
assessment). Warm compress given to patient for L groin site swelling. Pt now resting with call la in reach and plan of care ongoing.
Pt reports ongoing constipation. Tamiment-text sent to Dr Miller to notify. Rec'd telephone order for dulcolax 5mg PO BID PRN for constipation. Telephone order read back and order sent to pharmacy.
[2025-05-16 22:15] LABS: Glucose - Point of Care 234 mg/dl (70-99)
[2025-05-16 22:32] LABS: Glucose - Point of Care 224 mg/dl (70-99)
[2025-05-16] MEDS: DULCOLAX 5 MG PO (22:36)
[2025-05-16] MEDS: LANTUS 0.2 UNITS SC (22:37)
[2025-05-16] MEDS: NON-FORMULARY ITEM 1 UNIT BOTH EYES (22:44)
[2025-05-17 04:13] VITALS: BP 126/63
[2025-05-17 04:28] VITALS: BMI 35.5
[2025-05-17 04:37] LABS: Hematocrit 27.7 % (37.0-47.0); Hemoglobin 8.9 g/dL (12.0-16.0); Mean Corp Hgb Conc. 32.1 g/dL (33.0-37.0); Mean Corpuscular Volume 81.5 fL (81.0-99.0); Nucleated Red Blood Cells % 0 %; Platelet Count 211 10^3/uL (130-400); Red Cell Dist. Width 14.6 % (11.5-14.5)
[2025-05-17 05:23] LABS: Blood Urea Nitrogen 14 mg/dl (7-17); Calcium 8.8 mg/dl (8.4-10.2); Carbon Dioxide 24 mmol/L (22-30); Chloride 106 mmol/L (98-107); Estimated Creatinine Clearance 70 ml/min; Glucose 150 mg/dl (70-99); Potassium 4.4 mmol/L (3.5-5.1); Sodium 134 mmol/L (135-145); eGFR > 60.00
[2025-05-17 08:11] VITALS: BP 142/73
[2025-05-17] MEDS: CARDIZEM PO (08:23)
[2025-05-17 08:42] LABS: Glucose - Point of Care 165 mg/dl (70-99)
[2025-05-17] MEDS: NOVOLOG FLEXPEN-LOW RESISTANCE 1 UNITS SC ×2 (08:53→13:31)
[2025-05-17 08:56] VITALS: BP 148/64
[2025-05-17] MEDS: PLAVIX 75 MG PO (08:59)
[2025-05-17] MEDS: CARDIZEM CD 240 MG PO (09:00)
[2025-05-17] MEDS: TOPROL XL 50 MG PO (09:00)
[2025-05-17] MEDS: ELIQUIS 5 MG PO (09:00)
--- NOTE | 2025-05-17 09:44 | PTCARENOTE ---
Patient received at change of shift sitting at the edge of the bed. Bilateral groin sites C/D/I. Bilateral groin sites ecchymotic, L > R, soft to palpation. Bilateral pedal pulses weak to palpation. Denies chest pain or pressure. Reports
constipation, declined PRN bowel regimen. SR on telemetry. SaO2 on RA 96%. Plan of care discussed. Call la within reach. Care ongoing.
--- NOTE | 2025-05-17 11:01 | W.PN.CD ---
Today's Communication / Plan
-
Stable for outpatient follow up.
Discuss left subclavian stenosis with CTS and vascular surgery as we move towards [facility].
Impression / Plan
-
Impression/Plan: 74 y/o female with PAF on apixaban, HTN, HLD, DM2, obesity and CAD with prior PCI of the mLAD with known, asymptomatic ISR occlusion on follow up cardiac catheterization, admitted with inferior STEMI complicated by bradycardia and
hypotension requiring pressors, hypoxia and lethargy, consistent with cardiogenic shock, now s/p PCI to RCA with stabilization.
Cardiology: Mercado
#Inferior STEMI
-Improved/stabilized after PCI.
-She was initially in cardiogenic shock requiring norepinephrine and dopamine, now resolved.
-S/P PCI of the pRCA (Xience Skypoint 3.0 x 23 JAZMIN, post dilated with a 3.5 NC balloon) with reduction in stenosis to 0%, followed by aspiration thrombectomy of the dRCA, restoring DAVID III flow on 05/10/2025.
-Continue clopidogrel and statin. Also on eliquis for A fib, and s/p one week triple therapy. No further role for aspirin.
#Residual CAD
-Cardiac catheterization on 05/10/2025 showed recanalization of a previously occluded mLAD stent with70% lesion immediately proximal to the stent, which itself has a 70% ISR lesion.
-Repeat LHC on 05/14: Aborted IFR of the mid LAD after wire revealed an underappreciated severe stenosis in the mLAD stented segment.
-CT surgery is evaluating for bypass. Will be done as an outpatient in >30 days given recent stent and unable to interrupt DAPT.
-Aggressive secondary prevention with high dose, high potency statin. Goal LDL < 55.
-Metoprolol succinate 50 mg BID added for additional anti-anginal affect and assistance with AF rate control.
-CTA shows left subclavian artery stenosis ~ 50%. This could be an issue in terms of bypass and may need to be addressed as part of her care. Ongoing discussions with CT surgery. We may involve vascular.
#L groin hematoma
-Stable.
-Hgb stable.
#Paroxysmal A fib
- now in AF with RVR.
-Continue with diltiazem 60 mg q6H. and metoprolol succinate 50 mg daily. D/C'd home sotalol this admission.
-CHADS2-Vasc = 5 (HTN, Age x1, DM, vascular disease, female).
-eliquis for OAC
-Plan for KIRILL/DCCV today
#Vaginal bleeding
-Monitor: no evidence of new bleeding.
#HLD
#DM2
#Obesity
#Dispo
-IVU status.
-Full code.
-Discharge with outpatient surgical follow up.
Subjective/Interval History:
Patient underwent KIRILL guided DCCV yesterday.
Patient reports breathing is significantly improved from prior to admission.
DATA:
Cardiac catheterization/PCI, 05/10/2025:
CONCLUSIONS
1. Right dominant circulation with a 50% lesion in the proximal LAD at the origin of the diagonals a 70% lesion in the proximal margin of the mid LAD stent followed by a long 60-70% ISR lesion of the entire stented segment and a acute, thrombotic,
100% proximal RCA lesion status post aspiration thrombectomy of the proximal RCA, successful PCI of the proximal RCA (Xience Skypoint 3.0 x 23 JAZMIN, postdilated with a 3.5 NC balloon) with reduction in proximal stenosis to 0% and restoring DAVID-3
flow in the RCA and RPDA but resulting in embolization of the clot into the large RPL with subsequent repeat aspiration thrombectomy and removal of large clot burden from the RPL, restoring DAVID-3 flow throughout the entire vessel.
2. At least mildly dilated left ventricle with akinesis of the basal to mid inferior wall and mildly impaired systolic function, LVEF = 45-50%.
3. Severely elevated filling pressures (LVEDP = 35 mmHg at 94.0 kg).
4. Cardiogenic shock (hypotension requiring pressors, lethargy, diaphoresis), recovering with improved inotropic and chronotropic support.
Transthoracic echocardiogram, 05/11/2025:
SUMMARY
1. Normal left ventricular systolic function with possible hypokinesis of the basal to mid inferior wall. LVEF 60-65%.
2. Right ventricle is dilated with reduced systolic function.
3. No significant valvular disease. Normal PASP (33 mmHg).
4. No prior study available for comparison.
CTA Chest/Abdomen/Pelvis, 05/15/2025:
IMPRESSION:
Diffuse vascular calcification. There is no evidence for thoracic or abdominal aortic aneurysm.
Calcification involving the proximal left subclavian artery, close to 50% diameter reduction, and could possibly represent a hemodynamically significant stenosis.
Patchy soft tissue density within the subcutaneous soft tissues of the left groin, likely contusion after cardiac catheterization. No evidence for a well-defined hematoma.
Cholelithiasis. No findings to suggest acute cholecystitis.
Bony degenerative changes as described.
KIRILL, 05/16/2025:
SUMMARY
1. KIRILL performed prior to DCCV.
2. Normal left ventricular size, wall thickness and systolic function. Estimated LVEF 50-55%.
3. Mild/moderate mitral valve regurgitation.
4. Right ventricular size is dilated with mildly reduced systolic function.
5. Moderate tricuspid regurgitation.
6. No thrombus in the PEDRO. We then proceeded to DCCV.
Physical Exam
Vital Signs/Labs
Vital Signs
Temp Pulse Resp BP Pulse Ox
37.1 C 80 20 148/64 96
05/17/25 08:11 05/17/25 10:00 05/17/25 08:11 05/17/25 09:00 05/17/25 09:02
05/15/25 05/16/25 05/17/25
11:59 11:59 11:59
Actual Weight 92.8 kg 93 kg 93.8 kg
05/17/25 04:23
05/17/25 04:23
PT 13.8 Sec (11.4-14.6) 05/10/25 18:35
INR 1.01 05/10/25 18:35
APTT Cancelled 05/15/25 06:00
Magnesium 1.8 mg/dl (1.6-2.3) 05/13/25 02:24
Triglycerides 140 mg/dl (10-149) 05/12/25 03:43
LDL Cholesterol, Calc 48 mg/dl 05/12/25 03:43
VLDL Cholesterol, Calc 28 mg/dl (0-30) 05/12/25 03:43
HDL Cholesterol 31 mg/dl 05/12/25 03:43
Physical Exam
Constitutional: No acute distress and Comfortable
EENT: Anicteric and Moist mucous membranes
Cardiovascular: Rhythm & rate is regular, Pedal edema is absent, JVD pressure is normal, S1S2 is normal and Murmur/rub/gallop absent
Respiratory: Respiratory effort normal, Lungs clear to auscul., Wheeze Absent, Crackles Absent and Rhonchi Absent
GI: Soft, Distention absent, Flat, Non tender and Normal bowel sounds
Neuro/Psych: AO x 3
Other: Cath Site (Left femoral access site ecchymosis.)
Data Reviewed
-
Date of Service: May 17, 2025
Medical Decision Making: Reviewed Test Results, Independent Historian Assessment and Test Interpretation
EKG: Tracing Personally Visualized and interpreted and Report Reviewed by me
Echo: Tracing Personally Visualized and interpreted and Report Reviewed by me
X-Ray/CT/US/MRI/NUC/PET: Image Personally Visualized and interpreted and Report Reviewed by me
Medical Tests (PFT, Pathology etc): Image Personally Visualized and interpreted, Report Reviewed by me, Discussed with Physician, Discussed with Patient and Discussed with Family
Labs: Labs Reviewed by me
Old Records: Reviewed
[2025-05-17 11:19] VITALS: BP 118/59
--- NOTE | 2025-05-17 13:21 | W.DS.TRANS ---
Addendum entered and electronically signed by TEJINDER Polk 05/18/25 17:23:
After I performed d/c documentation yesterday, there was some confusion from nursing about sotalol and RN originally added it back to patient home med list. Yesterday, I clarified with nursing who confirmed she told patient she should not be taking
sotalol- it was crossed off her list at d/c, then later removed from chart. I called and spoke with patient today, who confirmed she is not taking sotalol and knows she should not be.
Original Note:
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
-
Discharge Instructions:
Discharge Diagnosis/Procedures STEMI/Coronary artery disease s/p angioplasty
with stent to RCA
Atrial fibrillation s/p KIRILL and cardioversion
Left subclavian stenosis
Vaginal Bleeding
Diabetes
Hyperlipidemia
Diet Low Cholesterol,Diabetic, Carb Controlled,Low
Fat
Activity No strenuous activity
Driving Restrictions No driving for 24 hours
Bathing Restrictions OK to Shower
Instructions:
Stand-Alone Forms: DC Instructions- Cath/EP Lab
Changes to Home Medications: Yes
Discharge Medications:
DC Medications w/original date entered in [facility]
apixaban 5 mg tablet (Eliquis) 5 mg PO BID Blood Clot Prevention/Tx 05/11/25
atorvastatin 40 mg tablet 40 mg PO DAILY High Cholesterol 05/11/25
empagliflozin 25 mg tablet (Jardiance) 25 mg PO DAILY Diabetes 05/11/25
famotidine 20 mg tablet (Pepcid) 20 mg PO DAILY Gastrointestinal Issue 05/11/25
insulin detemir U-100 100 unit/mL (3 mL) subcutaneous pen 30 unit SC Diabetes 05/11/25
metformin 1,000 mg tablet 1,000 mg PO BID Diabetes 05/11/25
nitroglycerin 0.4 mg sublingual tablet (Nitrostat) 0.4 mg sublingual Q5M PRN chest pain #25 tabs 05/16/25
clopidogrel 75 mg tablet 75 mg PO DAILY #30 tabs 05/17/25
diltiazem HCl 240 mg capsule,extended release 24 hr 240 mg PO DAILY #30 caps 05/17/25
metoprolol succinate 50 mg tablet,extended release 24 hr 50 mg PO DAILY #30 tabs 05/17/25
Home Medication Changes
stop sotalol, valsartan, aspirin
start plavix, diltiazem, metoprolol, PRN nitro
Pending Results: No
[2025-05-17 13:27] LABS: Glucose - Point of Care 186 mg/dl (70-99)
[2025-05-17 14:02] VITALS: BP 134/72
--- NOTE | 2025-05-17 14:29 | PTCARENOTE ---
Discharge instructions reviewed with patient who verbalized understanding of instructions. electronic device monitor and PIV INT removed. Patient's own eye drops returned to her. Vaginal bleeding listed on patient's discharge instructions, per patient the
bleeding was not vaginal it was from her groin site and wanted this to be noted. Patient discharged to home with driving.
== END 2025-05-17 14:29 | disposition home or self-care (01) | DRG 359 ==
LOC: IVU 20:35
PROVIDERS: Internal Medicine; Internal Medicine Cardiovascular Disease; Nurse Practitioner; Physician Assistant Medical; ADMITTING PHYSICIAN Internal Medicine Cardiovascular Disease; CONSULT PHYSICIAN Thoracic Surgery (Cardiothoracic Vascular Surgery); EMERGENCY PHYSICIAN Emergency Medicine
PROC: 027034Z Dilation of Coronary Artery, One Artery with Drug-eluting Intraluminal Device, Percutaneous Approach (ICD-10-PCS; 2025-05-10)
PROC: B2111ZZ Fluoroscopy of Multiple Coronary Arteries using Low Osmolar Contrast (ICD-10-PCS; 2025-05-10)
PROC: 4A023N7 Measurement of Cardiac Sampling and Pressure, Left Heart, Percutaneous Approach (ICD-10-PCS; 2025-05-10)
PROC: 02C13ZZ Extirpation of Matter from Coronary Artery, Two Arteries, Percutaneous Approach (ICD-10-PCS; 2025-05-10)
PROC: 4A033BC Measurement of Arterial Pressure, Coronary, Percutaneous Approach (ICD-10-PCS; 2025-05-14)
PROC: B24BZZ4 Ultrasonography of Heart with Aorta, Transesophageal (ICD-10-PCS; 2025-05-16)
PROC: 5A2204Z Restoration of Cardiac Rhythm, Single (ICD-10-PCS; 2025-05-16)
DX: I21.19 ST elevation (STEMI) myocardial infarction involving other coronary artery of inferior wall (principal); R57.0 Cardiogenic shock; T82.855A Stenosis of coronary artery stent, initial encounter; N17.9 Acute kidney failure, unspecified; L76.32 Postprocedural hematoma of skin and subcutaneous tissue following other procedure; I25.10 Atherosclerotic heart disease of native coronary artery without angina pectoris; I48.0 Paroxysmal atrial fibrillation; E66.9 Obesity, unspecified; C50.911 Malignant neoplasm of unspecified site of right female breast; I10 Essential (primary) hypertension; R09.02 Hypoxemia; E78.00 Pure hypercholesterolemia, unspecified; I08.1 Rheumatic disorders of both mitral and tricuspid valves; E11.9 Type 2 diabetes mellitus without complications; Y83.1 Surgical operation with implant of artificial internal device as the cause of abnormal reaction of the patient, or of later complication, without mention of misadventure at the time of the procedure; Y92.9 Unspecified place or not applicable; N93.9 Abnormal uterine and vaginal bleeding, unspecified; Y84.0 Cardiac catheterization as the cause of abnormal reaction of the patient, or of later complication, without mention of misadventure at the time of the procedure; Y71.3 Surgical instruments, materials and cardiovascular devices (including sutures) associated with adverse incidents; Y92.239 Unspecified place in hospital as the place of occurrence of the external cause; Z96.653 Presence of artificial knee joint, bilateral; Z68.35 Body mass index [BMI] 35.0-35.9, adult; Z79.01 Long term (current) use of anticoagulants; Z87.891 Personal history of nicotine dependence; Z92.3 Personal history of irradiation; Z79.84 Long term (current) use of oral hypoglycemic drugs
CPT/HCPCS: 71275; 74174; 80048; 80053; 80061; 82947; 82962; 83036; 83605; 83735; 84484; 85025; 85027; 85347; 85610; 85730; 92960; 93005; 93306; 93312; 93320; 93325; 93458; 93880; 94060; 94640; 96374; 96375; 99152; 99153; 99291; C1725; C1757; C1760; C1769; C1874; C1894; C9606; J1327; Q9957; Q9967

== ENCOUNTER → 2025-05-31 10:14 | Outpatient (REF) | payer MEDICARE, BC, SELFPAY | LOC: RAD 10:14 | PROVIDERS: ATTENDING PHYSICIAN Internal Medicine Cardiovascular Disease; FAMILY PHYSICIAN Internal Medicine | DX: I77.1 Stricture of artery (principal) | CPT/HCPCS: 93930 ==